=== PATIENT | female | born 1930 | race African-American/Black ===

== ENCOUNTER 2017-02-13 19:58 | Inpatient (IN) | payer MEDICARE, MEDICAID ==
[2017-02-13] MEDS ORDERED: Ondansetron HCl/PF 4 MG/2 ML Vial ONE (21:18)
[2017-02-13 21:32] LABS: #Lymphocytes 1.9 thou/uL (1.20-3.40); #Monocytes 0.9 thou/uL (0.11-0.59); #Neutrophils 6.8 thou/uL (1.40-6.50); %Basophils 0.4 % (0.0-1.0); %Eosinophils 0.5 % (0.0-10.0); %Lymphocytes 19.4 % (21.0-51.0); %Monocytes 9.6 % (0.0-10.0); Hematocrit 42.2 % (36.0-47.0); Mean Platelet Volume 8.4 fL (7.4-10.4); Red Blood Cell (RBC) Count 4.98 mill/uL (4.20-5.40); White Blood Cell (WBC) Count 9.7 thou/uL (4.8-10.8)
[2017-02-13 21:57] LABS: ALT (SGPT) 35 U/L (8-55); AST (SGOT) 30 U/L (5-34); Alkaline Phosphatase 90 U/L (40-150); Anion Gap 14 mmol/L (10-20); BUN (Urea Nitrogen) 21 mg/dL (9.8-20.1); Bilirubin, Total 0.3 mg/dL (0.2-1.2); CK (CPK) 25 U/L (29-168); Calc. Creatinine Clearance 0 mL/min (70-130); Calcium 9.9 mg/dL (7.8-10.44); Carbon Dioxide 22 mmol/L (23-31); Chloride 107 mmol/L (98-107); Estimated GFR-MDRD 66; Globulin 3.3 g/dL (2.4-3.5); Lipase 12 U/L (8-78); Protein, Total 6.9 g/dL (6.0-8.3)
[2017-02-13 22:09] LABS: Troponin I Less than 0.010 ng/mL (< 0.028)
--- NOTE | 2017-02-13 22:10 | RAD ---
RADIOGRAPH CHEST 1 VIEW: HISTORY: An 86-year-old female with hypertension. FINDINGS: The thoracic aorta is tortuous and ectatic. There is no evidence of air space density, pneumothorax , or pulmonary edema. The lateral costophrenic angles are sharp. There is no cardiomegaly. The me diastinum is widened, especially the upper mediastinum and especially on the right. There are no pr ior studies available for comparison. IMPRESSION: 1) No acute pulmonary findings. 2) Ectasia of thoracic aorta. 3) Widening of the upper mediastinum, nonspecific. jnr POS: [facility]
[2017-02-13 23:09] LABS: Lactic Acid - Sepsis 1.8 mmol/L (0.5-2.2)
[2017-02-13] MEDS ORDERED: Lorazepam 2 MG/ML VIAL ONE (23:30)
[2017-02-14 00:27] LABS: Bilirubin Negative (Negative); Blood, Urine Small (Negative); Glucose, Urine (Dipstick) Negative (Negative); Ketone, Urine Negative (Negative); Nitrite Negative (Negative); Protein, Urine (Dipstick) Trace mg/dL (Neg-Trace)
[2017-02-14 00:29] LABS: Bacteria/HPF 4+ HPF (None Seen)
[2017-02-14 00:44] LABS: Hyaline Casts/LPF NONE SEEN LPF (0-3 Hyaline); Renal Epithelial None Seen HPF (0-3); Transitional Epithelial NONE SEEN HPF (0-3); Yeast-All Forms None Seen HPF (None Seen)
[2017-02-14] MEDS ORDERED: cefTRIAXone\\ROCEPHIN 1 GM VIAL ONE (01:19)
[2017-02-14] MEDS ORDERED: Ondansetron ODT 4 MG TAB SL PRN (02:53)
[2017-02-14] MEDS ORDERED: Ondansetron HCl/PF 4 MG/2 ML Vial IVP PRN (02:53)
[2017-02-14] MEDS ORDERED: Lorazepam 2 MG/ML VIAL SLOW IVP PRN (02:54)
[2017-02-14] MEDS ORDERED: Sodium Chloride 0.45% 1,000 ML IV SCH ×2 (03:00→11:15)
[2017-02-14 03:23] VITALS: BMI 22.6
[2017-02-14] MEDS: Sodium Chloride 0.45% 1,000 ML IV SCH (12:57)
[2017-02-14] MEDS: cefTRIAXone\\ROCEPHIN 1 GM in Sodium Chloride 0.9% 100 ML IVPB SCH ×2 (12:58→23:25)
[2017-02-14] MEDS ORDERED: cefTRIAXone\\ROCEPHIN 1 GM in Sodium Chloride 0.9% 100 ML IVPB SCH (13:00)
--- NOTE | 2017-02-14 13:17 | CT ---
PRELIMINARY REPORT/[facility]/EMERGENCY AFTER HOURS PROCEDURE: EXAM: CT Abdomen and Pelvis Without Intravenous Contrast CLINICAL HISTORY: 86 years old, female; Pain; Abdominal pain; Generalized; Patient HX: Abd pain TECHNIQUE: Axial computed tomography images of the abdomen and pelvis without intravenous contrast. Coronal reformatted images were created and reviewed. COMPARISON: No relevant prior studies available. FINDINGS: Lower thorax: Mild posterior dependent atelectasis and/or scarring. Calcified granuloma within the p osterior right lower lobe. Calcified right hilar lymph nodes, compatible with prior granulomatous di sease. Atherosclerotic calcification of the visualized coronary arteries and distal thoracic aorta. ABDOMEN: Liver: Normal. Gallbladder and bile ducts: Cholelithiasis, without CT evidence of acute cholecystitis. Pancreas: Normal. Spleen: Normal. Adrenals: Normal. Kidneys and ureters: Normal. Stomach and bowel: Moderate amount of stool within the sigmoid colon and rectal vault, with multiple loops of non-pathologically dilated, gas and fluid-filled proximal colon and small bowel, likely co nstipation. Enteritis is possible. Mild wall thickening of the rectum, possibly edema secondary to f ecal impaction. Mild gas and fluid distention of the stomach. Appendix: No findings to suggest acute appendicitis. PELVIS: Bladder: Normal. Reproductive: Uterus is surgically absent. ABDOMEN and PELVIS: Intraperitoneal space: Normal. No free air. No significant fluid collection. Bones/joints: Multilevel thoracolumbar spine degenerative changes. Degenerative changes of the hips and sacroiliac joints. No acute fracture. No dislocation. Soft tissues: Normal. Vasculature: Multiple phleboliths within the pelvis. Lymph nodes: See above. IMPRESSION: 1. Moderate amount of stool within the sigmoid colon and rectal vault, with multiple loops of nonpat hologically dilated, gas and fluid-filled proximal colon and small bowel, likely constipation. Enter itis is possible. 2. Mild wall thickening of the rectum, possibly edema secondary to fecal impaction. 3. Incidental/non-acute findings are described above. Thank you for allowing us to participate in the care of your patient. Dictated and Authenticated by: Theodore England MD 02/14/2017 1:42 AM Central Time ([place] \T\ [place]) FINAL REPORT EMERGENCY AFTER HOURS CT ABDOMEN AND PELVIS WITHOUT CONTRAST: Date: 02/14/17 FINDINGS/IMPRESSION: I agree with the findings and impression given in the preliminary report per [facility] physician. There i s moderate stool retention in the colon without evidence of obstruction. There is a hyperdensity in the gallbladder. This could be artifactual or could represent a gallstone. POS: [facility]
[2017-02-14] MEDS: Artificial Tear Sol 15 ML BOT EA EYE SCH ×2 (15:49→21:01)
[2017-02-14] MEDS ORDERED: Fleet Enema 133 ML BOT FS SCH (18:45)
[2017-02-14] MEDS ORDERED: Magnesium Citrate 300 ML BOT PO SCH (18:45)
[2017-02-14] MEDS: risperiDONE 0.25 MG TAB PO SCH (19:11)
[2017-02-14] MEDS: levETIRAcetam 500 MG TAB PO SCH (19:12)
[2017-02-14] MEDS: Lorazepam 0.5 MG TAB PO SCH (19:12)
[2017-02-14] MEDS: Senokot S 8.6-50 MG TAB PO SCH (19:12)
[2017-02-14] MEDS: Mirtazapine 15 MG TAB PO SCH (19:12)
--- NOTE | 2017-02-15 06:19 | HP ---
DATE OF ADMISSION: 02/13/2017 CHIEF COMPLAINT: Altered mental status, high blood pressure, fever. HISTORY OF PRESENT ILLNESS: Ms. Rangel is an 86-year-old -[place]omin[place] female with past medical history of dementia, psychotic disorder, hypertension, anxiety disorder, who was noted to have fever for a couple of days. The patient has not been eating as well. The patient also is agitated. Her blood pressure was elevated[facility], so the patient was not her us ual self. She did not have any nausea, vomiting, or cough. No shortness of breath. She was sent t o the emergency room because of fever, elevated blood pressure, and change in mental status. In the ER, the patient was evaluated and found to have urinary tract infection with acute kidney injury. The patient received IV antibiotic, Rocephin, and IV fluids, also given Ativan because of her agitat ion. PAST MEDICAL HISTORY: 1. Dementia. 2. Seizure disorder. 3. Hypertension. 4. Hyperlipidemia. 5. Anxiety disorder. 6. Psychosis. 7. Major depression. 8. History of cerebrovascular accident. PAST SURGICAL HISTORY: Nothing significant. CURRENT MEDICATIONS: The patient is on aspirin 81 mg daily, calcium with vitamin D daily, Keppra 50 0 mg b.i.d., multivitamin daily, senna daily, Risperdal 0.5 b.i.d., Seroquel 100 mg 1-1/2 tablets at bedtime, Remeron 15 mg at bedtime, Ativan 0.5 b.i.d. ALLERGIES: No known drug allergies. FAMILY HISTORY: Nothing contributory. SOCIAL HISTORY: The patient lives in the [facility]. No history of smoking. No history of alcohol intake. REVIEW OF SYSTEMS: Unable to obtain because of mental status of the patient. PHYSICAL EXAMINATION: GENERAL: The patient is awake but not oriented. VITAL SIGNS: Temperature 99, pulse 103, respirations 20, blood pressure 150/90. HEENT: Head is normocephalic, atraumatic. Pupils equal and reactive to light. Nasopharynx is pale and dry. Hard and soft palate, no lesions. SKIN: Skin turgor decreased. NECK: Supple. No JVD. LUNGS: Breath sounds diminished bilaterally. Percussion dull bilaterally. No rales, no rhonchi. HEART: S1, S2 regular. ABDOMEN: Soft. No distention, no tenderness. Normal bowel sounds. RECTAL: Deferred. CENTRAL NERVOUS SYSTEM: Nonfocal. NEUROLOGIC: The patient is alert, awake, oriented x2. Motor system power 4/5 in all extremities. Deep tendon reflexes 2+ bilaterally. Plantars downgoing. Sensory intact. IMAGING: EKG shows sinus tachycardia with heart rate of 103, no acute ST-T wave changes seen. LABORATORY DATA: CBC shows WBC 9.7, hemoglobin 13, hematocrit 42, platelets 229. Metabolic panel s odium 139, potassium 4.4, chloride 107, CO2 of 22, urea nitrogen 21, creatinine 0.9, glucose 157. U rinalysis showed wbc's greater than 50, bacteria 4+. Chest x-ray shows no acute cardiopulmonary fin dings. CT of the brain revealed dilated loops secondary to constipation. ASSESSMENT: 1. Urinary tract infection. 2. Acute kidney injury. 3. Acute encephalopathy, metabolic. 4. Constipation, possible fecal impaction. 5. Dementia. 6. Hypertension. 7. Anxiety disorder. 8. History of cerebrovascular accident. PLAN: 1. Vital signs q. 4 hours. 2. Activity: As tolerated. 3. Allergies: NKDA. 4. IV fluids half normal at 70 mL per hour. 5. Rocephin 1 gram IV piggyback daily. 6. Continue [facility] medications. 7. Diet: Regular. 8. The patient is DNR. 9. We will give magnesium citrate and possible enema.
[2017-02-15 06:30] LABS: Anion Gap 9 mmol/L (10-20); BUN (Urea Nitrogen) 18 mg/dL (9.8-20.1); Calc. Creatinine Clearance 44 mL/min (70-130); Carbon Dioxide 25 mmol/L (23-31); Chloride 112 mmol/L (98-107); Estimated GFR-MDRD 74
[2017-02-15 06:40] LABS: #Eosinphils 0.2 thou/uL (0.0-0.7); #Lymphocytes 2.7 thou/uL (1.20-3.40); #Monocytes 0.6 thou/uL (0.11-0.59); #Neutrophils 1.9 thou/uL (1.40-6.50); %Basophils 0.8 % (0.0-1.0); %Eosinophils 3.6 % (0.0-10.0); %Lymphocytes 49.5 % (21.0-51.0); %Monocytes 11.3 % (0.0-10.0); Hematocrit 34.2 % (36.0-47.0); Mean Platelet Volume 8.5 fL (7.4-10.4); Red Blood Cell (RBC) Count 3.98 mill/uL (4.20-5.40); White Blood Cell (WBC) Count 5.4 thou/uL (4.8-10.8)
[2017-02-15] MEDS: risperiDONE 0.25 MG TAB PO SCH ×2 (08:15→21:07)
[2017-02-15] MEDS: Lorazepam 0.5 MG TAB PO SCH ×2 (08:15→21:07)
[2017-02-15] MEDS: levETIRAcetam 500 MG TAB PO SCH ×2 (08:15→21:06)
[2017-02-15] MEDS: Artificial Tear Sol 15 ML BOT EA EYE SCH ×3 (08:16→21:08)
[2017-02-15] MEDS: Sodium Chloride 0.45% 1,000 ML IV SCH (09:54)
[2017-02-15] MEDS: cefTRIAXone\\ROCEPHIN 1 GM in Sodium Chloride 0.9% 100 ML IVPB SCH (14:04)
[2017-02-15] MEDS: Senokot S 8.6-50 MG TAB PO SCH (21:06)
[2017-02-15] MEDS: Mirtazapine 15 MG TAB PO SCH (21:07)
[2017-02-16] MEDS: Sodium Chloride 0.45% 1,000 ML IV SCH ×2 (00:15→21:54)
[2017-02-16] MEDS: cefTRIAXone\\ROCEPHIN 1 GM in Sodium Chloride 0.9% 100 ML IVPB SCH ×2 (00:39→13:51)
[2017-02-16] MEDS: Lorazepam 0.5 MG TAB PO SCH ×2 (10:22→21:55)
[2017-02-16] MEDS: Artificial Tear Sol 15 ML BOT EA EYE SCH ×3 (10:22→21:54)
[2017-02-16] MEDS: risperiDONE 0.25 MG TAB PO SCH ×2 (10:22→21:54)
[2017-02-16] MEDS: levETIRAcetam 500 MG TAB PO SCH (10:22)
[2017-02-16] MEDS: levETIRAcetam 500 mg/5 ml Oral Solution PO SCH (21:54)
[2017-02-16] MEDS: Senokot S 8.6-50 MG TAB PO SCH (21:55)
[2017-02-16] MEDS: Mirtazapine 15 MG TAB PO SCH (21:55)
[2017-02-17] MEDS: cefTRIAXone\\ROCEPHIN 1 GM, Admixture Fee 1 EACH in Sodium Chloride 0.9% 100 ML IVPB SCH ×2 (01:45→13:51)
[2017-02-17 06:41] LABS: #Basophils 0.1 thou/uL (0.0-0.2); #Eosinphils 0.1 thou/uL (0.0-0.7); #Lymphocytes 1.9 thou/uL (1.20-3.40); #Monocytes 0.5 thou/uL (0.11-0.59); #Neutrophils 1.7 thou/uL (1.40-6.50); %Basophils 1.3 % (0.0-1.0); %Eosinophils 1.4 % (0.0-10.0); %Lymphocytes 45.4 % (21.0-51.0); %Monocytes 11.1 % (0.0-10.0); Hematocrit 33.2 % (36.0-47.0); Mean Platelet Volume 8.5 fL (7.4-10.4); Red Blood Cell (RBC) Count 3.94 mill/uL (4.20-5.40); White Blood Cell (WBC) Count 4.2 thou/uL (4.8-10.8)
[2017-02-17 07:04] LABS: Anion Gap 9 mmol/L (10-20); BUN (Urea Nitrogen) 15 mg/dL (9.8-20.1); Calc. Creatinine Clearance 44 mL/min (70-130); Calcium 8.7 mg/dL (7.8-10.44); Carbon Dioxide 25 mmol/L (23-31); Chloride 111 mmol/L (98-107); Estimated GFR-MDRD 75
[2017-02-17] MEDS: Lorazepam 0.5 MG TAB PO SCH ×2 (09:03→20:55)
[2017-02-17] MEDS: risperiDONE 0.25 MG TAB PO SCH ×2 (09:03→20:51)
[2017-02-17] MEDS: levETIRAcetam 500 mg/5 ml Oral Solution PO SCH ×2 (10:47→20:55)
[2017-02-17] MEDS: Artificial Tear Sol 15 ML BOT EA EYE SCH ×3 (11:24→20:49)
[2017-02-17] MEDS: Sodium Chloride 0.45% 1,000 ML IV SCH (18:39)
[2017-02-17] MEDS: Docusate 100 MG CAP PO SCH (20:50)
[2017-02-17] MEDS: Senokot S 8.6-50 MG TAB PO SCH (20:51)
[2017-02-17] MEDS: Mirtazapine 15 MG TAB PO SCH (20:51)
[2017-02-18] MEDS: cefTRIAXone\\ROCEPHIN 1 GM, Admixture Fee 1 EACH in Sodium Chloride 0.9% 100 ML IVPB SCH ×2 (00:13→13:44)
[2017-02-18] MEDS: levETIRAcetam 500 mg/5 ml Oral Solution PO SCH ×2 (09:31→21:12)
[2017-02-18] MEDS: risperiDONE 0.25 MG TAB PO SCH ×2 (09:31→21:11)
[2017-02-18] MEDS: Docusate 100 MG CAP PO SCH ×2 (09:31→21:11)
[2017-02-18] MEDS: Polyethylene Glycol 3350 17 GM Packet PO SCH (09:32)
[2017-02-18] MEDS: Artificial Tear Sol 15 ML BOT EA EYE SCH ×3 (09:32→21:11)
[2017-02-18] MEDS: Lorazepam 0.5 MG TAB PO SCH ×2 (09:33→21:12)
[2017-02-18] MEDS: Mirtazapine 15 MG TAB PO SCH (21:12)
[2017-02-18] MEDS: Senokot S 8.6-50 MG TAB PO SCH (21:15)
[2017-02-19] MEDS: cefTRIAXone\\ROCEPHIN 1 GM, Admixture Fee 1 EACH in Sodium Chloride 0.9% 100 ML IVPB SCH (00:49)
[2017-02-19 08:11] VITALS: BP 161/81; TEMP 97.5
[2017-02-19] MEDS: Lorazepam 0.5 MG TAB PO SCH (08:55)
[2017-02-19] MEDS: Artificial Tear Sol 15 ML BOT EA EYE SCH ×2 (08:55→09:00)
[2017-02-19] MEDS: risperiDONE 0.25 MG TAB PO SCH (08:55)
[2017-02-19] MEDS: Docusate 100 MG CAP PO SCH (08:56)
[2017-02-19] MEDS: Polyethylene Glycol 3350 17 GM Packet PO SCH (08:56)
[2017-02-19] MEDS: levETIRAcetam 500 mg/5 ml Oral Solution PO SCH (12:03)
--- NOTE | 2017-02-22 10:17 | DIS ---
DATE OF ADMISSION: 02/14/2017 DATE OF DISCHARGE: 02/19/2017 ADMITTING DIAGNOSES: 1. Urinary tract infection. 2. Acute kidney injury. 3. Acute encephalopathy, metabolic. 4. Constipation. 5. Dementia. 6. Hypertension. 7. Anxiety disorder. FINAL DIAGNOSES: 1. Urinary tract infection, no evidence of sepsis. 2. Acute kidney injury, improved. 3. Metabolic encephalopathy, improved. 4. Dementia. 5. Constipation, improved. 6. Hypertension. 7. Anxiety disorder. BRIEF SUMMARY OF HOSPITAL COURSE: Ms. Rangel is an 86-year-old -[place] female admitted bec ause of change in mental status. Patient was found to have a urinary tract infection and acute kidn ey injury. The patient was started on IV fluids and antibiotics. Her BUN was 21, came down to 15, and urine culture showed beta hemolytic streptococcus. The patient was treated with Rocephin initia lly. Her constipation resolved with laxatives. The patient tolerating diet very well. Her mental status also improved. In view of improvement, the patient was discharged. PHYSICAL EXAMINATION: GENERAL: At the time of discharge, she was stable. VITAL SIGNS: Stable. LUNGS: Clear. CARDIOVASCULAR: Heart sounds regular. ABDOMEN: Soft, nontender. Bowel sounds present. DISCHARGE MEDICATIONS: Include, Remeron 15 mg at bedtime, Risperdal 0.5 b.i.d., Seroquel 150 mg at bedtime, Ativan b.i.d. 0.5, benztropine 0.5 at bedtime, amlodipine 10 mg daily, Senokot 2 tablets at bedtime, vitamin C daily, Keppra 500 b.i.d., aspirin 81 mg daily, levofloxacin 500 daily for 5 days , and MiraLax daily. FOLLOWUP: The patient will be followed up at [facility].
== END 2017-02-19 12:05 | DRG 689 ==
LOC: ERS 19:58 → 2NO 02-14 01:05 → T4-B 02-17 08:31
PROVIDERS: ADMIT Internal Medicine; ATTEND Internal Medicine
DX: N39.0 Urinary tract infection, site not specified (principal); G93.41 Metabolic encephalopathy; N17.9 Acute kidney failure, unspecified; K56.41 Fecal impaction; F03.90 Unspecified dementia, unspecified severity, without behavioral disturbance, psychotic disturbance, mood disturbance, and anxiety; I10 Essential (primary) hypertension; F41.9 Anxiety disorder, unspecified; Z86.73 Personal history of transient ischemic attack (TIA), and cerebral infarction without residual deficits; Z79.82 Long term (current) use of aspirin; Z66 Do not resuscitate; G40.909 Epilepsy, unspecified, not intractable, without status epilepticus
CPT/HCPCS: 36415; 51701; 71010; 74176; 80048; 80053; 81003; 81015; 82550; 82553; 83605; 83690; 84484; 85025; 87040; 87086; 93005; 96361; 96365; 96374; 96375; A4216; A4353; G8996-GN-CL; G8997-GN-CK; J0696; J2060; J2270; J2405; J7050

== ENCOUNTER 2017-06-06 09:53 | Inpatient (IN) | payer MEDICARE, MEDICAID ==
[2017-06-06 11:11] LABS: #Lymphocytes 2.5 thou/uL (1.20-3.40); #Monocytes 0.9 thou/uL (0.11-0.59); #Neutrophils 8.5 thou/uL (1.40-6.50); %Basophils 0.4 % (0.0-1.0); %Eosinophils 0.1 % (0.0-10.0); %Lymphocytes 20.9 % (21.0-51.0); %Monocytes 7.3 % (0.0-10.0); %Neutrophils 71.3 % (42.0-75.0); Hypochromia SLIGHT = 6-15 cells (100X) (0-5/hpf); MDiff Complete? YES; Mean Corpuscular HGB CONC 29.8 g/dL (32.0-36.0); Mean Corpuscular Hemoglobin 23.2 pg (27.0-31.0); Mean Corpuscular Volume 77.9 fl (81.0-99.0); Mean Platelet Volume 6.8 fL (7.4-10.4); Platelet Count 223 thou/uL (130-400); RBC Distribution Width 18.5 % (11.5-14.5); Red Blood Cell (RBC) Count 5.17 mill/uL (4.20-5.40); Target Cells SLIGHT = 2-5 cells (100X) (0-1/hpf); White Blood Cell (WBC) Count 11.9 thou/uL (4.8-10.8)
[2017-06-06 11:17] LABS: ALT (SGPT) 11 U/L (8-55); AST (SGOT) 18 U/L (5-34); Albumin 3.8 g/dL (3.4-4.8); Alkaline Phosphatase 85 U/L (40-150); Anion Gap 14 mmol/L (10-20); BUN (Urea Nitrogen) 32 mg/dL (9.8-20.1); Bilirubin, Total 0.6 mg/dL (0.2-1.2); CK (CPK) 129 U/L (29-168); Calc. Creatinine Clearance 0 mL/min (70-130); Calcium 10.6 mg/dL (7.8-10.44); Carbon Dioxide 22 mmol/L (23-31); Chloride 109 mmol/L (98-107); Estimated GFR-MDRD 57; Globulin 3.1 g/dL (2.4-3.5); Glucose 106 mg/dL (83-110); Potassium 4.8 mmol/L (3.5-5.1); Protein, Total 6.9 g/dL (6.0-8.3); Sodium 140 mmol/L (136-145)
[2017-06-06 11:19] LABS: CKMB 1.3 ng/mL (0-6.6); Troponin I 0.018 ng/mL (< 0.028)
--- NOTE | 2017-06-06 12:20 | CT ---
CT HEAD NONCONTRAST: HISTORY: Altered mental status. COMPARISON: 01/01/17. FINDINGS: There is no evidence of acute intracranial hemorrhage or infarct. Old left occipital infarct is stab le. Chronic ischemic small-vessel disease is apparent within the periventricular white matter of eac h cerebral hemisphere. Old right frontal calvarial craniotomy defect is again demonstrated. Exostos is projecting anteriorly from the right frontal calvarium is stable. IMPRESSION: No acute intracranial abnormalities are demonstrated on noncontrast CT head. POS: [facility]
[2017-06-06 12:26] LABS: Bilirubin Negative (Negative); Blood, Urine Negative (Negative); Clarity TURBID (Clear); Glucose, Urine (Dipstick) Negative (Negative); Leukocyte Moderate (Negative); Nitrite Negative (Negative); Protein, Urine (Dipstick) Negative (Neg-Trace); Specific Gravity, Urine 1.028 (1.002-1.036); Urobilinogen 0.2 mg/dL (0.2-1.0); pH, Urine 5.5 (5.0-9.0)
--- NOTE | 2017-06-06 12:27 | RAD ---
CHEST 1 VIEW: HISTORY: A 47-year-old female with a history of fever and altered mental status. COMPARISON: 02/13/17. FINDINGS: Atherosclerotic ectatic changes of the aorta. There is some fullness in the superior mediastinum reg ion which may well be prominent vascular structures. It would be difficult to totally exclude the po ssibility of an anterior superior mediastinal mass. Appearance is, however, stable when compared to prior exam dating back to 02/13/17. No confluent pneumonia, overt edema, or pleural effusion. Bilateral shoulder joint arthrosis. IMPRESSION: No acute intrathoracic disease. Atherosclerosis of the aorta with ectasia. POS: [facility]
[2017-06-06 12:30] LABS: Bacteria/HPF 4+ HPF (None Seen); RBC/HPF 0-3 HPF (0-3); Squamous Epithelial 21-50 HPF (0-3)
[2017-06-06 12:33] LABS: Yeast-AUWi Flag 39.3 (0-25.0)
[2017-06-06 12:43] LABS: Hyaline Casts/LPF NONE SEEN LPF (0-3 Hyaline); Manual Microscopic Reviewed? No Path Casts Seen; Yeast-All Forms None Seen HPF (None Seen)
[2017-06-06] MEDS: Sodium Chloride 0.45% 1,000 ML IV SCH (15:52)
[2017-06-06 16:29] LABS: Lactic Acid 1.5 mmol/L (0.5-2.2)
[2017-06-06 20:49] LABS: Bilirubin Negative (Negative); Blood, Urine Negative (Negative); Clarity CLOUDY (Clear); Glucose, Urine (Dipstick) Negative (Negative); Leukocyte Small (Negative); Nitrite Negative (Negative); Protein, Urine (Dipstick) Negative (Neg-Trace); Specific Gravity, Urine 1.027 (1.002-1.036); Urobilinogen 0.2 mg/dL (0.2-1.0)
[2017-06-06 20:51] LABS: Bacteria/HPF 3+ HPF (None Seen); Hyaline Casts/LPF 4-6 HYALINE CAST LPF (0-3 Hyaline); Pathc Cast-AUWi Flag 1.35 (0-2.49); WBC/HPF 0-3 HPF (0-3)
[2017-06-06 21:02] LABS: RBC/HPF 0-3 HPF (0-3)
[2017-06-06] MEDS: Mirtazapine 15 MG TAB PO SCH (22:46)
[2017-06-06] MEDS: risperiDONE 0.25 MG TAB PO SCH (22:46)
[2017-06-06] MEDS: Lorazepam 1 MG TAB PO SCH (22:46)
[2017-06-06] MEDS: Calcium Carbonate + Vit D 1 TAB PO SCH (22:56)
[2017-06-06] MEDS: levETIRAcetam 500 MG TAB PO SCH (22:56)
[2017-06-06] MEDS: Senokot S 8.6-50 MG TAB PO SCH (23:04)
[2017-06-06] MEDS: Docusate 100 MG CAP PO SCH (23:04)
[2017-06-06] MEDS: Benztropine 1 MG TAB PO SCH (23:15)
[2017-06-06] MEDS: Artificial Tear Sol 15 ML BOT EA EYE SCH (23:16)
--- NOTE | 2017-06-07 00:16 | HP ---
DATE OF ADMISSION: CHIEF COMPLAINT: Fever, change in mental status. HISTORY OF PRESENT ILLNESS: Ms. Rangel is an 87-year-old -[place] female with past medical history of dementia, anxiety disorder, who was found to have temperature of 101 at the care home. The patient was also found to be very lethargic as per the care home staff and she was tachycardic. The patient was very calm, not responding. Usually, she is combative to the care The patient was not usual herself. She did not have any cough or nausea or vomiting. In view of this high fever and change in mental status, the patient was sent to the emergency room. In the ER, the patient was evaluated and found to have temperature of 101.6 and evidence of urinary tract infection and dehydration. The patient was given IV fluids, ceftriaxone, and vancomycin and admitted for further evaluation and management. PAST MEDICAL HISTORY: 1. Dementia. 2. Anxiety disorder. 3. Depression. 4. Psychosis. 5. History of CVA. 6. Hypertension. 7. Seizure disorder. PAST SURGICAL HISTORY: Nothing significant. CURRENT MEDICATIONS: The patient is on 81 mg aspirin daily, calcium with vitamin D daily, Keppra 500 b.i.d., multivitamin daily, senna daily, Risperdal 0.5 b.i.d., amlodipine 10 mg daily, vitamin C daily, MiraLax daily, Remeron 15 mg at bedtime, Seroquel 150 at bedtime, Ativan 0.5 mg b.i.d., and benztropine 0.5 at bedtime. ALLERGIES: NKDA. FAMILY HISTORY: Nothing contributory. SOCIAL HISTORY: The patient lives in the care home. REVIEW OF SYSTEMS: CARDIOVASCULAR: No chest pain. No shortness of breath. RESPIRATORY: She has fever, no cough. GASTROINTESTINAL: No nausea or vomiting. No abdominal pain. GENITOURINARY: No dysuria or hematuria. EVENT STAFF: No headache, no dizziness. PHYSICAL EXAMINATION: GENERAL: The patient is alert, awake, not well oriented. VITAL SIGNS: Temperature 101.1, pulse 96, respirations 20, and blood pressure 130/60. HEENT: Head is normocephalic, atraumatic. Pupils equal and reactive to light. Nasopharynx is pale and dry. Skin turgor decreased. NECK: Supple. No JVD. LUNGS: Bilateral air entry present, no rales, no rhonchi. CARDIAC: S1 and S2, regular. ABDOMEN: Soft, no distention, no tenderness. Normal bowel sounds. NEUROLOGIC: No focal deficit. SKIN: There is stage II sacral decubitus. LABORATORY AND X-RAY FINDINGS: CBC shows WBC 11.9, hemoglobin 12, hematocrit 40 , platelets 223. Metabolic panel: Sodium 140, potassium 4.8, chloride 109, CO2 20, creatinine 1.1, glucose 106. BNP 103. Urinalysis revealed wbc 2150, bacteria 4+, leukocyte esterase moderate. Chest x-ray, no acute intrathoracic disease. EKG shows normal sinus rhythm, no acute ST-T wave changes seen. ASSESSMENT: 1. Fever with leukocytosis, rule out sepsis. 2. Urinary tract infection, rule out sepsis. 3. Rule out influenza. 4. acute metabolic encephalopathy. 5. Acute kidney injury. 6. Dementia. 7. Psychosis. 8. Anxiety disorder. 9. Seizure disorder. PLAN: 1. Vital signs q.4 hours. 2. Activity as tolerated. 3. Allergies: NKDA. 4. IV fluids 1/2 normal at 70 mL per hour. 5. Rocephen 2 g IV piggyback daily. 6. Intake and output. 7. Continue care home medications. 8. urine cultures. 9. Wound care team consult. 10. Blood cultures. MTDD
[2017-06-07] MEDS: Lorazepam 1 MG TAB PO SCH ×2 (09:26→21:01)
[2017-06-07] MEDS: Ascorbic Acid 500 mg Chewable Tablet PO SCH (09:26)
[2017-06-07] MEDS: Amlodipine 10 MG TAB PO SCH (09:26)
[2017-06-07] MEDS: risperiDONE 0.25 MG TAB PO SCH ×2 (09:26→21:03)
[2017-06-07] MEDS: Calcium Carbonate + Vit D 1 TAB PO SCH ×2 (09:26→21:03)
[2017-06-07] MEDS: Aspirin 81 mg Enteric Coated Tablet PO SCH (09:26)
[2017-06-07] MEDS: Docusate 100 MG CAP PO SCH ×2 (09:26→21:03)
[2017-06-07] MEDS: levETIRAcetam 500 MG TAB PO SCH ×2 (09:26→21:03)
[2017-06-07] MEDS: Polyethylene Glycol 3350 17 GM Packet PO SCH (09:33)
[2017-06-07] MEDS: cefTRIAXone\\ROCEPHIN 2 GM in Sodium Chloride 0.9% 100 ML IVPB SCH (09:38)
[2017-06-07] MEDS: Artificial Tear Sol 15 ML BOT EA EYE SCH ×3 (09:38→21:03)
[2017-06-07] MEDS: Sodium Chloride 0.45% 1,000 ML IV SCH ×2 (09:47→21:16)
[2017-06-07] MEDS: Senokot S 8.6-50 MG TAB PO SCH (21:02)
[2017-06-07] MEDS: Mirtazapine 15 MG TAB PO SCH (21:04)
[2017-06-07] MEDS: Benztropine 1 MG TAB PO SCH (21:04)
[2017-06-08] MEDS: Sodium Chloride 0.45% 1,000 ML IV SCH ×2 (00:13→08:35)
[2017-06-08 06:24] LABS: Anion Gap 8 mmol/L (10-20); BUN (Urea Nitrogen) 13 mg/dL (9.8-20.1); Calc. Creatinine Clearance 56 mL/min (70-130); Calcium 8.8 mg/dL (7.8-10.44); Carbon Dioxide 24 mmol/L (23-31); Chloride 112 mmol/L (98-107); Estimated GFR-MDRD 89; Glucose 104 mg/dL (83-110); Potassium 3.5 mmol/L (3.5-5.1); Sodium 140 mmol/L (136-145)
[2017-06-08 06:39] LABS: Band 2 % (5-11); Eosinophils 1 % (0-10); Hemoglobin 7.9 g/dL (12.0-16.0); Hypochromia SLIGHT = 6-15 cells (100X) (0-5/hpf); Lymphocytes 37 % (21-51); MDiff Complete? YES; Mean Corpuscular HGB CONC 30.7 g/dL (32.0-36.0); Mean Corpuscular Hemoglobin 23.8 pg (27.0-31.0); Mean Corpuscular Volume 77.5 fl (81.0-99.0); Mean Platelet Volume 11.3 fL (7.4-10.4); Monocytes 8 % (0-10); Neutrophil 52 % (42-75); PLT Morphology Comment Appears Adequate; Platelet Count 178 thou/uL (130-400); RBC Distribution Width 18.3 % (11.5-14.5); Schistocytes SLIGHT = 2-5 cells (100X) (0-1/hpf); White Blood Cell (WBC) Count 4.1 thou/uL (4.8-10.8)
[2017-06-08] MEDS: Polyethylene Glycol 3350 17 GM Packet PO SCH (08:31)
[2017-06-08] MEDS: Docusate 100 MG CAP PO SCH ×2 (08:31→21:54)
[2017-06-08] MEDS: Calcium Carbonate + Vit D 1 TAB PO SCH ×2 (08:32→21:54)
[2017-06-08] MEDS: levETIRAcetam 500 MG TAB PO SCH ×2 (08:32→21:54)
[2017-06-08] MEDS: risperiDONE 0.25 MG TAB PO SCH ×2 (08:32→21:57)
[2017-06-08] MEDS: Aspirin 81 mg Enteric Coated Tablet PO SCH (08:33)
[2017-06-08] MEDS: Amlodipine 10 MG TAB PO SCH (08:33)
[2017-06-08] MEDS: cefTRIAXone\\ROCEPHIN 2 GM in Sodium Chloride 0.9% 100 ML IVPB SCH (08:34)
[2017-06-08] MEDS: Ascorbic Acid 500 mg Chewable Tablet PO SCH (08:34)
[2017-06-08] MEDS: Lorazepam 1 MG TAB PO SCH ×2 (08:34→21:55)
[2017-06-08] MEDS: Artificial Tear Sol 15 ML BOT EA EYE SCH ×3 (08:44→22:17)
[2017-06-08 09:15] LABS: #Eosinphils 0.1 thou/uL (0.0-0.7); #Lymphocytes 2.3 thou/uL (1.20-3.40); #Monocytes 0.6 thou/uL (0.11-0.59); #Neutrophils 2.4 thou/uL (1.40-6.50); %Basophils 0.7 % (0.0-1.0); %Eosinophils 2.5 % (0.0-10.0); %Lymphocytes 42.8 % (21.0-51.0); %Monocytes 10.6 % (0.0-10.0); %Neutrophils 43.3 % (42.0-75.0); Hypochromia SLIGHT = 6-15 cells (100X) (0-5/hpf); MDiff Complete? YES; Mean Corpuscular HGB CONC 29.9 g/dL (32.0-36.0); Mean Corpuscular Hemoglobin 23.2 pg (27.0-31.0); Mean Corpuscular Volume 77.5 fl (81.0-99.0); Mean Platelet Volume 11.6 fL (7.4-10.4); Microcytosis SLIGHT = 6-15 cells (100X) (0-5/hpf); Platelet Count 207 thou/uL (130-400); RBC Distribution Width 18.4 % (11.5-14.5); White Blood Cell (WBC) Count 5.5 thou/uL (4.8-10.8)
[2017-06-08] MEDS: Potassium Chloride 20 MEQ TAB PO SCH ×2 (18:35→21:58)
[2017-06-08] MEDS: Benztropine 1 MG TAB PO SCH (21:53)
[2017-06-08] MEDS: Mirtazapine 15 MG TAB PO SCH (21:56)
[2017-06-08] MEDS: Senokot S 8.6-50 MG TAB PO SCH (21:58)
[2017-06-09] MEDS: Sodium Chloride 0.45% 1,000 ML IV SCH ×2 (02:36→11:11)
[2017-06-09 05:39] LABS: Anion Gap 9 mmol/L (10-20); BUN (Urea Nitrogen) 12 mg/dL (9.8-20.1); Calc. Creatinine Clearance 52 mL/min (70-130); Calcium 9.6 mg/dL (7.8-10.44); Carbon Dioxide 24 mmol/L (23-31); Chloride 112 mmol/L (98-107); Estimated GFR-MDRD 81; Glucose 81 mg/dL (83-110); Iron 29 ug/dL (50-170); Iron Binding Capacity, Total 213 mcg/dL (265-497); Potassium 4.3 mmol/L (3.5-5.1); Sodium 141 mmol/L (136-145)
[2017-06-09 05:49] LABS: Band 1 % (5-11); Eosinophils 2 % (0-10); Hemoglobin 8.1 g/dL (12.0-16.0); Hypochromia SLIGHT = 6-15 cells (100X) (0-5/hpf); Lymphocytes 54 % (21-51); MDiff Complete? YES; Mean Corpuscular HGB CONC 30.4 g/dL (32.0-36.0); Mean Corpuscular Hemoglobin 23.6 pg (27.0-31.0); Mean Corpuscular Volume 77.6 fl (81.0-99.0); Mean Platelet Volume 10.8 fL (7.4-10.4); Monocytes 11 % (0-10); Neutrophil 32 % (42-75); Platelet Count 207 thou/uL (130-400); RBC Distribution Width 18.2 % (11.5-14.5); Red Blood Cell (RBC) Count 3.42 mill/uL (4.20-5.40); White Blood Cell (WBC) Count 4.1 thou/uL (4.8-10.8)
[2017-06-09] MEDS: Polyethylene Glycol 3350 17 GM Packet PO SCH (10:47)
[2017-06-09] MEDS: risperiDONE 0.25 MG TAB PO SCH ×2 (10:48→20:28)
[2017-06-09] MEDS: Amlodipine 10 MG TAB PO SCH (10:48)
[2017-06-09] MEDS: Ascorbic Acid 500 mg Chewable Tablet PO SCH (10:48)
[2017-06-09] MEDS: Lorazepam 1 MG TAB PO SCH ×2 (10:48→20:25)
[2017-06-09] MEDS: levETIRAcetam 500 MG TAB PO SCH ×2 (10:48→20:25)
[2017-06-09] MEDS: Docusate 100 MG CAP PO SCH ×2 (10:48→20:24)
[2017-06-09] MEDS: Aspirin 81 mg Enteric Coated Tablet PO SCH (10:48)
[2017-06-09] MEDS: Artificial Tear Sol 15 ML BOT EA EYE SCH ×3 (10:49→20:42)
[2017-06-09] MEDS: Calcium Carbonate + Vit D 1 TAB PO SCH ×2 (10:49→20:23)
[2017-06-09] MEDS: cefTRIAXone\\ROCEPHIN 2 GM in Sodium Chloride 0.9% 100 ML IVPB SCH (10:51)
[2017-06-09 12:34] VITALS: BMI 24.2
[2017-06-09] MEDS: Benztropine 1 MG TAB PO SCH (20:20)
[2017-06-09] MEDS: Mirtazapine 15 MG TAB PO SCH (20:26)
[2017-06-09] MEDS: Senokot S 8.6-50 MG TAB PO SCH (20:28)
[2017-06-10] MEDS: cefTRIAXone\\ROCEPHIN 2 GM in Sodium Chloride 0.9% 100 ML IVPB SCH (09:18)
[2017-06-10] MEDS: levETIRAcetam 500 MG TAB PO SCH ×2 (09:18→22:02)
[2017-06-10] MEDS: Ascorbic Acid 500 mg Chewable Tablet PO SCH (09:18)
[2017-06-10] MEDS: Calcium Carbonate + Vit D 1 TAB PO SCH ×2 (09:19→22:01)
[2017-06-10] MEDS: risperiDONE 0.25 MG TAB PO SCH ×2 (09:19→22:02)
[2017-06-10] MEDS: Lorazepam 1 MG TAB PO SCH ×2 (09:19→22:02)
[2017-06-10] MEDS: Artificial Tear Sol 15 ML BOT EA EYE SCH ×3 (09:19→22:05)
[2017-06-10] MEDS: Docusate 100 MG CAP PO SCH ×2 (09:19→22:05)
[2017-06-10] MEDS: Amlodipine 10 MG TAB PO SCH (09:19)
[2017-06-10] MEDS: Aspirin 81 mg Enteric Coated Tablet PO SCH (09:19)
[2017-06-10] MEDS: Polyethylene Glycol 3350 17 GM Packet PO SCH (09:20)
[2017-06-10] MEDS: Senokot S 8.6-50 MG TAB PO SCH (22:01)
[2017-06-10] MEDS: Mirtazapine 15 MG TAB PO SCH (22:02)
[2017-06-10] MEDS: Benztropine 1 MG TAB PO SCH (22:04)
[2017-06-11 05:01] LABS: #Eosinphils 0.2 thou/uL (0.0-0.7); #Monocytes 0.5 thou/uL (0.11-0.59); #Neutrophils 1.6 thou/uL (1.40-6.50); %Eosinophils 3.7 % (0.0-10.0); %Monocytes 10.6 % (0.0-10.0); %Neutrophils 37.7 % (42.0-75.0); Hemoglobin 8.2 g/dL (12.0-16.0); Mean Corpuscular HGB CONC 30.9 g/dL (32.0-36.0); Mean Corpuscular Volume 77.6 fl (81.0-99.0); Mean Platelet Volume 10.3 fL (7.4-10.4); Platelet Count 228 thou/uL (130-400); RBC Distribution Width 18.5 % (11.5-14.5); White Blood Cell (WBC) Count 4.2 thou/uL (4.8-10.8)
[2017-06-11 05:12] LABS: Anion Gap 9 mmol/L (10-20); BUN (Urea Nitrogen) 11 mg/dL (9.8-20.1); Calc. Creatinine Clearance 45 mL/min (70-130); Calcium 9.5 mg/dL (7.8-10.44); Carbon Dioxide 27 mmol/L (23-31); Chloride 110 mmol/L (98-107); Estimated GFR-MDRD 71; Glucose 100 mg/dL (83-110); Potassium 3.7 mmol/L (3.5-5.1); Sodium 142 mmol/L (136-145)
[2017-06-11] MEDS: Amlodipine 10 MG TAB PO SCH (09:45)
[2017-06-11] MEDS: Ascorbic Acid 500 mg Chewable Tablet PO SCH (09:46)
[2017-06-11] MEDS: Aspirin 81 mg Enteric Coated Tablet PO SCH (09:46)
[2017-06-11] MEDS: Calcium Carbonate + Vit D 1 TAB PO SCH ×2 (09:46→20:20)
[2017-06-11] MEDS: risperiDONE 0.25 MG TAB PO SCH ×2 (09:46→20:20)
[2017-06-11] MEDS: levETIRAcetam 500 MG TAB PO SCH ×2 (09:46→20:20)
[2017-06-11] MEDS: Docusate 100 MG CAP PO SCH ×2 (09:46→20:20)
[2017-06-11] MEDS: Lorazepam 1 MG TAB PO SCH ×2 (09:47→20:20)
[2017-06-11] MEDS: cefTRIAXone\\ROCEPHIN 2 GM in Sodium Chloride 0.9% 100 ML IVPB SCH (09:48)
[2017-06-11] MEDS: Polyethylene Glycol 3350 17 GM Packet PO SCH (09:48)
[2017-06-11] MEDS: Artificial Tear Sol 15 ML BOT EA EYE SCH ×3 (09:48→20:21)
[2017-06-11] MEDS: Benztropine 1 MG TAB PO SCH (20:19)
[2017-06-11] MEDS: Mirtazapine 15 MG TAB PO SCH (20:20)
[2017-06-11] MEDS: Senokot S 8.6-50 MG TAB PO SCH (20:20)
[2017-06-12] MEDS: risperiDONE 0.25 MG TAB PO SCH ×2 (08:18→20:23)
[2017-06-12] MEDS: levETIRAcetam 500 MG TAB PO SCH ×2 (08:18→20:23)
[2017-06-12] MEDS: Calcium Carbonate + Vit D 1 TAB PO SCH ×2 (08:19→20:24)
[2017-06-12] MEDS: Lorazepam 1 MG TAB PO SCH ×2 (08:19→20:24)
[2017-06-12] MEDS: Polyethylene Glycol 3350 17 GM Packet PO SCH (08:19)
[2017-06-12] MEDS: Docusate 100 MG CAP PO SCH ×2 (08:19→20:24)
[2017-06-12] MEDS: Amlodipine 10 MG TAB PO SCH (08:19)
[2017-06-12] MEDS: Ascorbic Acid 500 mg Chewable Tablet PO SCH (08:19)
[2017-06-12] MEDS: Aspirin 81 mg Enteric Coated Tablet PO SCH (08:19)
[2017-06-12] MEDS: cefTRIAXone\\ROCEPHIN 2 GM in Sodium Chloride 0.9% 100 ML IVPB SCH (08:20)
[2017-06-12] MEDS: Artificial Tear Sol 15 ML BOT EA EYE SCH ×3 (08:20→20:24)
[2017-06-12] MEDS: Benztropine 1 MG TAB PO SCH (20:22)
[2017-06-12] MEDS: Senokot S 8.6-50 MG TAB PO SCH (20:23)
[2017-06-12] MEDS: Mirtazapine 15 MG TAB PO SCH (20:23)
[2017-06-13 04:50] LABS: #Eosinphils 0.1 thou/uL (0.0-0.7); #Lymphocytes 1.8 thou/uL (1.20-3.40); #Monocytes 0.6 thou/uL (0.11-0.59); #Neutrophils 3.2 thou/uL (1.40-6.50); %Basophils 0.7 % (0.0-1.0); %Eosinophils 1.2 % (0.0-10.0); %Lymphocytes 31.2 % (21.0-51.0); %Monocytes 10.1 % (0.0-10.0); %Neutrophils 56.8 % (42.0-75.0); Hemoglobin 9.3 g/dL (12.0-16.0); Mean Corpuscular HGB CONC 31.5 g/dL (32.0-36.0); Mean Corpuscular Hemoglobin 24.8 pg (27.0-31.0); Mean Corpuscular Volume 78.7 fl (81.0-99.0); Mean Platelet Volume 9.8 fL (7.4-10.4); Platelet Count 270 thou/uL (130-400); RBC Distribution Width 18.5 % (11.5-14.5); Red Blood Cell (RBC) Count 3.77 mill/uL (4.20-5.40); White Blood Cell (WBC) Count 5.7 thou/uL (4.8-10.8)
[2017-06-13 05:08] LABS: Anion Gap 12 mmol/L (10-20); BUN (Urea Nitrogen) 11 mg/dL (9.8-20.1); Calc. Creatinine Clearance 49 mL/min (70-130); Calcium 9.7 mg/dL (7.8-10.44); Carbon Dioxide 24 mmol/L (23-31); Chloride 111 mmol/L (98-107); Estimated GFR-MDRD 80; Glucose 84 mg/dL (83-110); Potassium 3.8 mmol/L (3.5-5.1); Sodium 143 mmol/L (136-145)
[2017-06-13] MEDS: Artificial Tear Sol 15 ML BOT EA EYE SCH ×3 (08:36→20:04)
[2017-06-13] MEDS: cefTRIAXone\\ROCEPHIN 2 GM in Sodium Chloride 0.9% 100 ML IVPB SCH (08:36)
[2017-06-13] MEDS: risperiDONE 0.25 MG TAB PO SCH ×2 (08:37→20:06)
[2017-06-13] MEDS: levETIRAcetam 500 MG TAB PO SCH ×2 (08:37→20:06)
[2017-06-13] MEDS: Lorazepam 1 MG TAB PO SCH ×2 (08:37→20:05)
[2017-06-13] MEDS: Polyethylene Glycol 3350 17 GM Packet PO SCH (08:38)
[2017-06-13] MEDS: Ascorbic Acid 500 mg Chewable Tablet PO SCH (08:38)
[2017-06-13] MEDS: Aspirin 81 mg Enteric Coated Tablet PO SCH (08:38)
[2017-06-13] MEDS: Amlodipine 10 MG TAB PO SCH (08:38)
[2017-06-13] MEDS: Calcium Carbonate + Vit D 1 TAB PO SCH ×2 (08:38→20:06)
[2017-06-13] MEDS: Docusate 100 MG CAP PO SCH ×2 (08:38→20:06)
[2017-06-13] MEDS: Senokot S 8.6-50 MG TAB PO SCH (20:06)
[2017-06-13] MEDS: Mirtazapine 15 MG TAB PO SCH (20:06)
[2017-06-13] MEDS: Benztropine 1 MG TAB PO SCH (21:22)
[2017-06-14 08:55] VITALS: BP 144/76; TEMP 97.9
[2017-06-14] MEDS: Ascorbic Acid 500 mg Chewable Tablet PO SCH (09:37)
[2017-06-14] MEDS: risperiDONE 0.25 MG TAB PO SCH (09:37)
[2017-06-14] MEDS: Lorazepam 1 MG TAB PO SCH (09:37)
[2017-06-14] MEDS: Amlodipine 10 MG TAB PO SCH (09:38)
[2017-06-14] MEDS: Aspirin 81 mg Enteric Coated Tablet PO SCH (09:38)
[2017-06-14] MEDS: Polyethylene Glycol 3350 17 GM Packet PO SCH (09:38)
[2017-06-14] MEDS: Artificial Tear Sol 15 ML BOT EA EYE SCH (09:38)
[2017-06-14] MEDS: Calcium Carbonate + Vit D 1 TAB PO SCH (09:38)
[2017-06-14] MEDS: levETIRAcetam 500 MG TAB PO SCH (09:38)
[2017-06-14] MEDS: Docusate 100 MG CAP PO SCH (09:38)
--- NOTE | 2017-06-15 14:26 | DIS ---
DATE OF ADMISSION: 06/06/2017 DATE OF DISCHARGE: 06/14/2017 ADMITTING DIAGNOSES: 1. Fever with leukocytosis, rule out sepsis. 2. Urinary tract infection, rule out sepsis. 3. Rule out influenza infection. 4. Acute metabolic encephalopathy. 5. Acute kidney injury, improved. 6. Dementia. 7. Psychosis. 8. Anxiety disorder. 9. Seizure disorder. FINAL DIAGNOSES: 1. Urinary tract infection, no evidence of sepsis. 2. Fever and leukocytosis, resolved. No evidence of influenza infection. 3. Acute metabolic encephalopathy, improved. 4. Acute kidney injury, improved. 5. Dementia. 6. Psychosis. 7. Anxiety disorder. 8. Seizure disorder. BRIEF SUMMARY OF HOSPITAL COURSE: Ms. Rangel was found to have urinary tract infection as well as de hydration, fever, and leukocytosis. She was very [facility]argic and tachycardic at the [facility] and t hat is why she was sent to the hospital. She was found to have a UTI. She was started on IV antibio tics and IV fluids. The patient had leukocytosis with a WBC of 12,000, but it came down to 5000. He r BUN was 32, came down to 11 with fluid therapy. Her urine culture and blood culture revealed no gr owth. Influenza screen was negative. The patient became more alert, awake, and was able to eat norm ally. In view of improvement, the patient was discharged. At the time of discharge, she was stable. Her vital signs were stable. Lungs clear. Heart sounds regular. Abdomen was soft. DISCHARGE MEDICATIONS: Include, 1. Remeron 15 mg at bedtime. 2. Risperdal 0.5 b.i.d. 3. Seroquel 100 mg 1-1/2 tablets at bedtime. 4. Ativan 0.5 b.i.d. 5. Benztropine 0.5 at bedtime. 6. Amlodipine 10 mg daily. 7. Senokot 2 tablets at bedtime. 8. Vitamin C daily. 9. Keppra 500 b.i.d. 10. Aspirin 81 mg daily. 11. Calcium b.i.d. 12. . 13. MiraLax 17 grams daily. 14. Colace 100 mg b.i.d. 15. Patient was given Levaquin 500 mg daily for 1 week.
== END 2017-06-14 11:10 | DRG 689 ==
LOC: ERS 09:53 → SURG B 11:00
PROVIDERS: ADMIT Internal Medicine; ATTEND Internal Medicine
DX: N39.0 Urinary tract infection, site not specified (principal); G93.41 Metabolic encephalopathy; L89.152 Pressure ulcer of sacral region, stage 2; N17.9 Acute kidney failure, unspecified; E86.0 Dehydration; D63.8 Anemia in other chronic diseases classified elsewhere; F03.90 Unspecified dementia, unspecified severity, without behavioral disturbance, psychotic disturbance, mood disturbance, and anxiety; F41.9 Anxiety disorder, unspecified; G40.909 Epilepsy, unspecified, not intractable, without status epilepticus; I10 Essential (primary) hypertension; Z66 Do not resuscitate
CPT/HCPCS: 36415; 70450; 71045; 80048; 80053; 81003; 81015; 82553; 82607; 82728; 82746; 83540; 83550; 83605; 83880; 84484; 85025; 87086; 87804; 96365; 96367; A4353; J0696; J3370; J7050

== ENCOUNTER 2017-08-26 11:47 | Inpatient (IN) | payer MEDICARE, MEDICAID ==
[2017-08-26 13:02] LABS: #Eosinphils 0.1 thou/uL (0.0-0.7); #Lymphocytes 1.9 thou/uL (1.20-3.40); #Monocytes 0.5 thou/uL (0.11-0.59); #Neutrophils 6.2 thou/uL (1.40-6.50); %Basophils 0.1 % (0.0-1.0); %Eosinophils 0.7 % (0.0-10.0); %Lymphocytes 22.3 % (21.0-51.0); %Neutrophils 70.9 % (42.0-75.0); Hemoglobin 14.4 g/dL (12.0-16.0); Mean Corpuscular HGB CONC 30.8 g/dL (32.0-36.0); Mean Corpuscular Hemoglobin 23.8 pg (27.0-31.0); Mean Corpuscular Volume 77.2 fl (81.0-99.0); Mean Platelet Volume 6.2 fL (7.4-10.4); Platelet Count 210 thou/uL (130-400); Red Blood Cell (RBC) Count 6.07 mill/uL (4.20-5.40); White Blood Cell (WBC) Count 8.7 thou/uL (4.8-10.8)
--- NOTE | 2017-08-26 13:07 | RAD ---
PORTABLE CHEST ONE VIEW: Date: 08-26-17 Time: 11:50 a.m. History: Facial droop, more lethargic than normal. FINDINGS: Comparison made with exam of 06-06-17. The heart size is normal. The aorta is tortuous. The lungs are well expanded without focal areas of c onsolidation, pneumothorax, or pleural effusions. There are degenerative changes in the shoulder join ts. IMPRESSION: No radiographic evidence of acute cardiopulmonary process. POS: [facility]
[2017-08-26 13:16] LABS: MDiff Complete? YES; Microcytosis SLIGHT = 6-15 cells (100X) (0-5/hpf); Polychromasia SLIGHT = 2-3 cells (100X) (0-2/hpf)
[2017-08-26 13:23] LABS: CKMB 0.7 ng/mL (0-6.6); Troponin I Less than 0.010 ng/mL (< 0.028)
[2017-08-26] MEDS ORDERED: Labetalol HCl 100 MG/20 ML VIAL ONE ×2 (13:54→15:58)
[2017-08-26 14:25] LABS: Albumin 4.2 g/dL (3.4-4.8)
[2017-08-26 14:26] LABS: Chloride 108 mmol/L (98-107); Potassium 3.9 mmol/L (3.5-5.1); Sodium 141 mmol/L (136-145)
[2017-08-26 14:27] LABS: Calcium 10.3 mg/dL (7.8-10.44)
[2017-08-26 14:28] LABS: Globulin 3.4 g/dL (2.4-3.5); Glucose 167 mg/dL (83-110); Protein, Total 7.6 g/dL (6.0-8.3)
[2017-08-26 14:29] LABS: Anion Gap 13 mmol/L (10-20); Carbon Dioxide 24 mmol/L (23-31)
[2017-08-26 14:30] LABS: Alkaline Phosphatase 83 U/L (40-150); Bilirubin, Total 0.3 mg/dL (0.2-1.2)
[2017-08-26 14:31] LABS: Calc. Creatinine Clearance 0 mL/min (70-130); Estimated GFR-MDRD 58
[2017-08-26 14:32] LABS: BUN (Urea Nitrogen) 20 mg/dL (9.8-20.1)
[2017-08-26 14:33] LABS: AST (SGOT) 11 U/L (5-34)
[2017-08-26 14:34] LABS: ALT (SGPT) 7 U/L (8-55); Lipase 7 U/L (8-78)
[2017-08-26 15:22] LABS: Bilirubin Negative (Negative); Blood, Urine Moderate (Negative); Clarity TURBID (Clear); Glucose, Urine (Dipstick) Negative (Negative); Leukocyte Large (Negative); Nitrite Negative (Negative); Protein, Urine (Dipstick) 100 mg/dL (Neg-Trace); Specific Gravity, Urine 1.025 (1.002-1.036); Urobilinogen 0.2 mg/dL (0.2-1.0); pH, Urine 7.5 (5.0-9.0)
[2017-08-26 15:23] LABS: Bacteria/HPF 4+ HPF (None Seen)
[2017-08-26 15:24] LABS: Pathc Cast-AUWi Flag 2.89 (0-2.49)
[2017-08-26 15:32] LABS: Yeast-All Forms None Seen HPF (None Seen)
[2017-08-26 15:33] LABS: Hyaline Casts/LPF 0-3 HYALINE CAST LPF (0-3 Hyaline)
[2017-08-26] MEDS ORDERED: cefTRIAXone\\ROCEPHIN 2 GM VIAL ONE (15:58)
[2017-08-26] MEDS ORDERED: hydrALAZINE 20 MG/ML VIAL ONE (16:15)
--- NOTE | 2017-08-26 16:31 | CT ---
CT BRAIN WITHOUT CONTRAST: 08/26/17 HISTORY: Altered mental status FINDINGS: Changes of cortical atrophy, chronic small vessel ischemic disease, old left occipital lobe infarctio n and right frontal craniotomy changes are again noted. The ventricular size is stable and the basila r cisterns patent. No evidence of acute infarction, hemorrhage, midline shift, or abnormal extra-axia l fluid collections are seen. No acute cavitary adenoma disease seen. The paranasal sinuses and masto id air cells are well aerated. Calcific density in the left frontal scalp is again seen. IMPRESSION: Stable exam. No CT evidence of acute intracranial process. POS: [facility]
[2017-08-26 17:17] LABS: Lactic Acid 4.7 mmol/L (0.5-2.2)
[2017-08-26 17:26] LABS: Troponin I Less than 0.010 ng/mL (< 0.028)
[2017-08-26] MEDS ORDERED: Ondansetron ODT 4 MG TAB SL PRN (17:46)
[2017-08-26] MEDS ORDERED: Ondansetron HCl/PF 4 MG/2 ML Vial IVP PRN (17:46)
[2017-08-26] MEDS ORDERED: Gentamicin Sulfate 300 MG in Sodium Chloride 0.9% 100 ML IVPB SCH (18:30)
[2017-08-26] MEDS: Dextrose 5 %-0.45 % NaCl 1,000 ML IV SCH (18:41)
[2017-08-26] MEDS ORDERED: Vancomycin HCl 1 GM in Premix Bag 1 BAG IVPB SCH (18:45)
[2017-08-26] MEDS: Sodium Chloride 0.9% 1,000 ML IV SCH (19:33)
[2017-08-26 20:19] LABS: Troponin I Less than 0.010 ng/mL (< 0.028)
[2017-08-26] MEDS: Lorazepam 0.5 MG TAB PO SCH (21:35)
[2017-08-26] MEDS: Benztropine 1 MG TAB PO SCH (21:35)
[2017-08-26] MEDS: Senokot S 8.6-50 MG TAB PO SCH (21:36)
[2017-08-26] MEDS: levETIRAcetam 500 MG TAB PO SCH (21:36)
[2017-08-26] MEDS: Ferrous Sulfate 325 MG TAB PO SCH (21:37)
[2017-08-26] MEDS: Mirtazapine 15 MG TAB PO SCH (21:37)
[2017-08-26] MEDS: Docusate 100 MG CAP PO SCH (21:37)
[2017-08-26] MEDS: Refresh (Polyvinyl Alcohol 1.4%/Povidone 0.6%) Opth Drops EA EYE SCH (21:37)
[2017-08-26] MEDS: Calcium Carbonate + Vit D 1 TAB PO SCH (21:37)
[2017-08-26] MEDS: QUEtiapine Fumarate ER 50 MG TAB PO SCH (21:38)
[2017-08-27] MEDS: Sodium Chloride 0.9% 1,000 ML IV SCH (01:30)
[2017-08-27] MEDS ORDERED: Vancomycin HCl 1 GM in Premix Bag 1 BAG IVPB SCH (06:00)
--- NOTE | 2017-08-27 06:00 | HP ---
DATE OF ADMISSION: 08/26/2017 REASON FOR ADMISSION and CHIEF COMPLAINT: Fever, change in mental status. HISTORY OF PRESENT ILLNESS: Ms. Rangel is an 87-year-old -[place]ym[place] female with past medical history of hypertension and dementia, who was found to have temperature of 101 to 101.9 degrees at the care home. The patient also showed some change in mental status with lethargy, but did not have any cough, any shortness of breath, nausea, or vomiting. The patient is also not moving much, occasionally ambulates. The patient also vomited one time. So, in view of the change in mental status, high fever, and vomiting, the patient was sent to the emergency room for evaluation. In the ER, the patient was evaluated and found to have urinary tract infection, met criteria for sepsis. So, she was given a dose of vancomycin, gentamicin, Rocephin; and also the patient was found to be very hypertensive with blood pressure of 216/122. So, the patient received a couple of doses of labetalol, after which it came down to 170 systolic. The patient was admitted to telemetry in ER for the hypertensive emergency. PAST MEDICAL HISTORY: 1. Anxiety disorder. 2. Dementia. 3. Depression. 4. History of psychosis. 5. History of cerebrovascular accident. 6. Hypertension. 7. Seizure disorder. 8. History of urinary tract infection. PAST SURGICAL HISTORY: Nothing significant. CURRENT MEDICATIONS: Aspirin 81 mg daily, calcium with vitamin D once daily, Keppra 500 mg b.i.d., Senna daily, vitamin C daily, amlodipine 5 mg daily, benztropine 1 mg half tablet daily, Risperdal 0.5 mg b.i.d., Ativan 0.5 mg b.i.d., Remeron 15 mg at bedtime, Seroquel 150 mg once a day, MiraLax 17 grams daily, Colace daily, ferrous sulfate b.i.d. ALLERGIES: NKDA. FAMILY HISTORY: Nothing of interest. SOCIAL HISTORY: The patient is a care home resident. History of smoking. REVIEW OF SYSTEMS: Unable to obtain because of the patient's mental status. PHYSICAL EXAMINATION: GENERAL: The patient is awake, but not communicating. VITAL SIGNS: Temperature 98, pulse 95, respirations 20, blood pressure 170/106. HEENT: Head is normocephalic, atraumatic. Pupils are equal and reactive. Nasopharynx is pale and dry. Hard and soft palate, no lesions seen. SKIN: Turgor decreased. NECK: Supple. No JVD. LUNGS: Breath sounds are diminished bilaterally percussion dull bilaterally. No rales, no rhonchi. HEART: S1, S2 regular. No murmurs. ABDOMEN: Soft. No distention, no tenderness, no organomegaly. Bowel sounds are present. RECTAL: Deferred. CENTRAL NERVOUS SYSTEM: The patient is awake, but not very alert, not communicating. Motor system: Power 4/5 in all extremities. Deep tendon reflex 2+ bilaterally. Plantar downgoing. Sensory intact. LABORATORY AND X-RAY FINDINGS: CBC shows WBC 8.7, hemoglobin 14, hematocrit 46 , platelets 210. Metabolic panel: Sodium 140, potassium 3.9, chloride 108, CO2 of 24, urea nitrogen 20, creatinine 1, glucose 167. lactic acid went up to 4.7. CK-MB is 0.7. Troponin I is less than 0.010. Urinalysis: Wbc's greater than 50, rbc's 4-6, leukocyte esterase large, blood moderate, bacteria 4 +. Chest x-ray, negative. CT of the brain, unremarkable. EKG shows normal sinus rhythm, no acute ST-T wave changes seen. ASSESSMENT: 1. Urinary tract infection, rule out sepsis. 2. Fever, possibly secondary to urinary tract infection. 3. Hypertensive emergency. 4. Dementia. 5. Psychosis. 6. Seizure disorder. 7. Anxiety disorder. 8. History of cerebrovascular accident. PLAN: 1. Vital signs q.4 hours. 2. Activity: As tolerated. 3. Allergies: NKDA. 4. IV fluid, D5 half normal at 80 mL per hour. 5. Rocephin 2 grams IV piggyback daily. 6. Urine culture. 7. Blood culture. 8. Continue care home medications. 9. Diet: Regular. CODE STATUS: The patient is DNR. MTDD
[2017-08-27] MEDS: Dextrose 5 %-0.45 % NaCl 1,000 ML IV SCH (09:54)
[2017-08-27] MEDS: cefTRIAXone\\ROCEPHIN 2 GM in Sodium Chloride 0.9% 100 ML IVPB SCH (09:54)
[2017-08-27] MEDS: Lorazepam 0.5 MG TAB PO SCH ×2 (09:55→19:55)
[2017-08-27] MEDS: Amlodipine 10 MG TAB PO SCH (09:55)
[2017-08-27] MEDS: Ascorbic Acid 500 mg Chewable Tablet PO SCH (09:55)
[2017-08-27] MEDS: Ferrous Sulfate 325 MG TAB PO SCH ×2 (09:55→19:55)
[2017-08-27] MEDS: levETIRAcetam 500 MG TAB PO SCH ×2 (09:55→19:55)
[2017-08-27] MEDS: Calcium Carbonate + Vit D 1 TAB PO SCH ×2 (09:55→19:55)
[2017-08-27] MEDS: Docusate 100 MG CAP PO SCH ×2 (09:55→19:55)
[2017-08-27] MEDS: Polyethylene Glycol 3350 17 GM Packet PO SCH (09:56)
[2017-08-27] MEDS: Labetalol HCl 100 MG/20 ML VIAL SLOW IVP PRN ×2 (10:00→19:53)
[2017-08-27] MEDS: Refresh (Polyvinyl Alcohol 1.4%/Povidone 0.6%) Opth Drops EA EYE SCH ×3 (15:47→19:55)
[2017-08-27] MEDS: Vancomycin HCl 750 MG in Sodium Chloride 0.9% 250 ML 250 ML IVPB SCH (19:23)
[2017-08-27] MEDS: QUEtiapine Fumarate ER 50 MG TAB PO SCH (19:54)
[2017-08-27] MEDS: Senokot S 8.6-50 MG TAB PO SCH (19:54)
[2017-08-27] MEDS: Mirtazapine 15 MG TAB PO SCH (19:55)
[2017-08-27] MEDS: Benztropine 1 MG TAB PO SCH (19:57)
[2017-08-28] MEDS: Dextrose 5 %-0.45 % NaCl 1,000 ML IV SCH ×2 (02:59→18:22)
[2017-08-28 06:08] LABS: Anion Gap 12 mmol/L (10-20); BUN (Urea Nitrogen) 12 mg/dL (9.8-20.1); Calc. Creatinine Clearance 38 mL/min (70-130); Calcium 9.9 mg/dL (7.8-10.44); Carbon Dioxide 22 mmol/L (23-31); Chloride 111 mmol/L (98-107); Estimated GFR-MDRD 69; Glucose 127 mg/dL (83-110); Potassium 3.5 mmol/L (3.5-5.1); Sodium 141 mmol/L (136-145)
[2017-08-28 06:10] LABS: Lactic Acid 2.2 mmol/L (0.5-2.2)
[2017-08-28 06:22] LABS: #Eosinphils 0.1 thou/uL (0.0-0.7); #Lymphocytes 2.1 thou/uL (1.20-3.40); #Monocytes 0.6 thou/uL (0.11-0.59); %Basophils 0.3 % (0.0-1.0); %Eosinophils 1.1 % (0.0-10.0); %Lymphocytes 35.6 % (21.0-51.0); %Monocytes 10.4 % (0.0-10.0); %Neutrophils 52.6 % (42.0-75.0); Anisocytosis SLIGHT = 6-15 cells (100X) (0-5/hpf); Hemoglobin 10.5 g/dL (12.0-16.0); Hypochromia SLIGHT = 6-15 cells (100X) (0-5/hpf); MDiff Complete? YES; Mean Corpuscular Hemoglobin 24.5 pg (27.0-31.0); Mean Corpuscular Volume 78.9 fl (81.0-99.0); Platelet Count 183 thou/uL (130-400); RBC Distribution Width 20.6 % (11.5-14.5); Red Blood Cell (RBC) Count 4.29 mill/uL (4.20-5.40); Schistocytes SLIGHT = 2-5 cells (100X) (0-1/hpf); White Blood Cell (WBC) Count 5.8 thou/uL (4.8-10.8)
[2017-08-28] MEDS: Labetalol HCl 100 MG/20 ML VIAL SLOW IVP PRN (08:10)
[2017-08-28] MEDS: Amlodipine 10 MG TAB PO SCH (09:17)
[2017-08-28] MEDS: Ascorbic Acid 500 mg Chewable Tablet PO SCH (09:17)
[2017-08-28] MEDS: Calcium Carbonate + Vit D 1 TAB PO SCH ×2 (09:17→19:35)
[2017-08-28] MEDS: Ferrous Sulfate 325 MG TAB PO SCH ×2 (09:18→19:36)
[2017-08-28] MEDS: Lorazepam 0.5 MG TAB PO SCH ×2 (09:18→19:36)
[2017-08-28] MEDS: Docusate 100 MG CAP PO SCH ×2 (09:18→19:36)
[2017-08-28] MEDS: Polyethylene Glycol 3350 17 GM Packet PO SCH (09:18)
[2017-08-28] MEDS: levETIRAcetam 500 MG TAB PO SCH ×2 (09:18→19:36)
[2017-08-28] MEDS: Refresh (Polyvinyl Alcohol 1.4%/Povidone 0.6%) Opth Drops EA EYE SCH ×3 (09:29→20:20)
[2017-08-28] MEDS: cefTRIAXone\\ROCEPHIN 2 GM in Sodium Chloride 0.9% 100 ML IVPB SCH (09:29)
--- NOTE | 2017-08-28 09:40 | CT ---
CT BRAIN: DATE: 08/28/17. PROVIDED CLINICAL HISTORY: Head pain status post fall. FINDINGS: Comparison is made with the study dated 08/26/17. The ventricular system appears normal in size and m orphology. There is no evidence for intracranial hemorrhage or mass effect. Chronic microvascular i schemic changes and remote left DIPPER FISH distribution infarction appear unchanged with respect to the prio r study. Postoperative changes involving the right frontal skull are redemonstrated. The extracrani al soft tissues and osseous structures demonstrate no acute findings. IMPRESSION: No evidence for intracranial hemorrhage or mass effect. POS: [facility]
--- NOTE | 2017-08-28 13:52 | PRG ---
DATE OF SERVICE: 08/28/2017 SUBJECTIVE: Ms. Rangel is an 87-[facility] patient who was admitted for UTI. I am naveen rasmussen for Dr. Salazar. This patient is being treated with IV antibiotics. This morning due to the m ental status change, the patient underwent a CT scan of the head which showed no evidence of any acut e intracranial hemorrhage or mass effect. No other complaints. She remains agitated. OBJECTIVE: VITAL SIGNS: Blood pressure 134/78, heart rate 91, respiratory rate is 18, pulse ox 97%. GENERAL: Awake, agitated, not in overt distress. SKIN: Adequate turgor. HEENT: Pinkish conjunctivae, anicteric sclerae. LUNGS: Clear breath sounds. HEART: Normal sinus rhythm. No murmur, no gallops, no rubs. ABDOMEN: Globular, soft, nontender, no masses. EXTREMITIES: No edema. NEUROLOGIC: Not following my commands. She has spasticity of the upper extremities. MEDICATIONS: Medications of 08/28/2017 was reviewed. LABORATORY DATA: Labs of 08/28/2017 white count 5.8, hemoglobin 10.5, sodium 141, potassium 3.5, chl oride 111, carbon dioxide 22, BUN 12, creatinine 0.93, glucose 127, calcium 9.9. Lactic acid 2.2, tr oponin I less than 0.010. CT scan of the brain, no acute intracranial abnormality. ASSESSMENT AND PLAN: 1. Presumptive infection -- on empiric antibiotics. 2. Spasticity of the extremities -- this may be a reflection of her current Cogentin. This may be a reflection of early extrapyramidal signs and symptoms. Continue supportive care. Adjust medication as needed. Overall, agree with current management.
[2017-08-28 14:15] VITALS: BMI 22.4
[2017-08-28 18:01] LABS: Vancomycin, Trough 6.4 ug/mL
[2017-08-28] MEDS: Vancomycin HCl 750 MG in Sodium Chloride 0.9% 250 ML 250 ML IVPB SCH (18:21)
[2017-08-28] MEDS ORDERED: Vancomycin HCl 500 MG in Sodium Chloride 0.9% 100 ML IVPB SCH (18:45)
[2017-08-28] MEDS: Benztropine 1 MG TAB PO SCH (19:35)
[2017-08-28] MEDS: Mirtazapine 15 MG TAB PO SCH (19:36)
[2017-08-28] MEDS: QUEtiapine Fumarate ER 50 MG TAB PO SCH (19:36)
[2017-08-28] MEDS: Senokot S 8.6-50 MG TAB PO SCH (19:36)
[2017-08-29] MEDS: Ferrous Sulfate 325 MG TAB PO SCH ×2 (09:36→20:55)
[2017-08-29] MEDS: Calcium Carbonate + Vit D 1 TAB PO SCH ×2 (09:36→20:54)
[2017-08-29] MEDS: Docusate 100 MG CAP PO SCH ×2 (09:36→20:55)
[2017-08-29] MEDS: levETIRAcetam 500 MG TAB PO SCH (09:36)
[2017-08-29] MEDS: Amlodipine 10 MG TAB PO SCH (09:36)
[2017-08-29] MEDS: Lorazepam 0.5 MG TAB PO SCH ×2 (09:36→20:55)
[2017-08-29] MEDS: Polyethylene Glycol 3350 17 GM Packet PO SCH (09:36)
[2017-08-29] MEDS: Ascorbic Acid 500 mg Chewable Tablet PO SCH (09:36)
[2017-08-29] MEDS: Refresh (Polyvinyl Alcohol 1.4%/Povidone 0.6%) Opth Drops EA EYE SCH ×3 (09:37→20:55)
[2017-08-29] MEDS: Dextrose 5 %-0.45 % NaCl 1,000 ML IV SCH ×2 (10:14→20:54)
[2017-08-29] MEDS: cefTRIAXone\\ROCEPHIN 2 GM in Sodium Chloride 0.9% 100 ML IVPB SCH (10:14)
[2017-08-29] MEDS ORDERED: Vancomycin HCl 1.25 GM in Sodium Chloride 0.9% 250 ML 250 ML IVPB SCH (18:00)
[2017-08-29] MEDS ORDERED: Sterile Water 10 ML VIAL FS PRN (18:36)
[2017-08-29] MEDS: Benztropine 1 MG TAB PO SCH (20:54)
[2017-08-29] MEDS: Senokot S 8.6-50 MG TAB PO SCH (20:55)
[2017-08-29] MEDS: Mirtazapine 15 MG TAB PO SCH (20:55)
[2017-08-29] MEDS: QUEtiapine Fumarate ER 50 MG TAB PO SCH (20:55)
[2017-08-30] MEDS: Ziprasidone 20 MG VIAL IM PRN (07:54)
[2017-08-30] MEDS: Ferrous Sulfate 325 MG TAB PO SCH (09:47)
[2017-08-30] MEDS: Amlodipine 10 MG TAB PO SCH (09:47)
[2017-08-30] MEDS: Calcium Carbonate + Vit D 1 TAB PO SCH ×2 (09:48→20:22)
[2017-08-30] MEDS: Lorazepam 0.5 MG TAB PO SCH ×2 (09:48→20:21)
[2017-08-30] MEDS: Ascorbic Acid 500 mg Chewable Tablet PO SCH (09:48)
[2017-08-30] MEDS: Docusate 100 MG CAP PO SCH ×2 (09:48→20:22)
[2017-08-30] MEDS: Polyethylene Glycol 3350 17 GM Packet PO SCH (09:48)
[2017-08-30] MEDS: Dextrose 5 %-0.45 % NaCl 1,000 ML IV SCH ×2 (11:54→21:30)
[2017-08-30] MEDS: Labetalol HCl 100 MG/20 ML VIAL SLOW IVP PRN ×2 (12:00→17:01)
[2017-08-30] MEDS: Refresh (Polyvinyl Alcohol 1.4%/Povidone 0.6%) Opth Drops EA EYE SCH ×3 (12:59→20:32)
[2017-08-30] MEDS: Senokot S 8.6-50 MG TAB PO SCH (20:21)
[2017-08-30] MEDS: Mirtazapine 15 MG TAB PO SCH (20:21)
[2017-08-30] MEDS: Benztropine 1 MG TAB PO SCH (20:22)
[2017-08-30] MEDS: QUEtiapine Fumarate ER 50 MG TAB PO SCH (20:22)
[2017-08-30] MEDS: levETIRAcetam 500 mg/5 ml Oral Solution PO SCH (20:48)
[2017-08-30] MEDS ORDERED: levETIRAcetam 500 MG TAB PO SCH (21:00)
[2017-08-31] MEDS: Ziprasidone 20 MG VIAL IM PRN (00:07)
[2017-08-31 06:29] LABS: Anion Gap 9 mmol/L (10-20); BUN (Urea Nitrogen) 7 mg/dL (9.8-20.1); Calc. Creatinine Clearance 49 mL/min (70-130); Calcium 9.2 mg/dL (7.8-10.44); Carbon Dioxide 23 mmol/L (23-31); Chloride 114 mmol/L (98-107); Estimated GFR-MDRD Greater than 90; Glucose 79 mg/dL (83-110); Sodium 143 mmol/L (136-145)
[2017-08-31 06:50] LABS: #Eosinphils 0.1 thou/uL (0.0-0.7); #Lymphocytes 2.1 thou/uL (1.20-3.40); #Monocytes 0.7 thou/uL (0.11-0.59); #Neutrophils 1.6 thou/uL (1.40-6.50); %Basophils 0.3 % (0.0-1.0); %Eosinophils 2.5 % (0.0-10.0); %Lymphocytes 46.9 % (21.0-51.0); %Monocytes 14.4 % (0.0-10.0); Anisocytosis SLIGHT = 6-15 cells (100X) (0-5/hpf); Hemoglobin 10.7 g/dL (12.0-16.0); MDiff Complete? YES; Mean Corpuscular HGB CONC 30.4 g/dL (32.0-36.0); Mean Corpuscular Hemoglobin 24.2 pg (27.0-31.0); Mean Corpuscular Volume 79.7 fl (81.0-99.0); Mean Platelet Volume 5.9 fL (7.4-10.4); PLT Morphology Comment Appears Adequate; Platelet Count 166 thou/uL (130-400); RBC Distribution Width 20.7 % (11.5-14.5); Red Blood Cell (RBC) Count 4.43 mill/uL (4.20-5.40); Schistocytes SLIGHT = 2-5 cells (100X) (0-1/hpf); White Blood Cell (WBC) Count 4.5 thou/uL (4.8-10.8)
[2017-08-31] MEDS: Docusate 100 MG CAP PO SCH ×2 (09:34→21:49)
[2017-08-31] MEDS: Amlodipine 10 MG TAB PO SCH (09:34)
[2017-08-31] MEDS: Lorazepam 0.5 MG TAB PO SCH ×2 (09:34→21:49)
[2017-08-31] MEDS: Calcium Carbonate + Vit D 1 TAB PO SCH ×2 (09:34→21:49)
[2017-08-31] MEDS: Ascorbic Acid 500 mg Chewable Tablet PO SCH (09:34)
[2017-08-31] MEDS: Polyethylene Glycol 3350 17 GM Packet PO SCH (09:35)
[2017-08-31] MEDS: levETIRAcetam 500 mg/5 ml Oral Solution PO SCH ×2 (09:35→22:22)
[2017-08-31] MEDS: Refresh (Polyvinyl Alcohol 1.4%/Povidone 0.6%) Opth Drops EA EYE SCH ×3 (09:35→21:50)
[2017-08-31] MEDS: Dextrose 5 %-0.45 % NaCl 1,000 ML IV SCH ×2 (09:48→21:59)
[2017-08-31] MEDS ORDERED: Potassium Chloride 20 MEQ TAB PO SCH (10:00)
[2017-08-31] MEDS: Labetalol HCl 100 MG/20 ML VIAL SLOW IVP PRN (17:29)
[2017-08-31] MEDS: Mirtazapine 15 MG TAB PO SCH (21:49)
[2017-08-31] MEDS: Senokot S 8.6-50 MG TAB PO SCH (21:49)
[2017-08-31] MEDS: Benztropine 1 MG TAB PO SCH (21:49)
[2017-08-31] MEDS: QUEtiapine Fumarate ER 50 MG TAB PO SCH ×2 (21:51)
[2017-08-31] MEDS: Potassium Chloride 20 MEQ TAB PO SCH (21:59)
[2017-08-31] MEDS: cloNIDine 0.1 MG TAB PO SCH (21:59)
[2017-08-31] MEDS: risperiDONE 0.25 MG TAB PO SCH (22:00)
[2017-09-01] MEDS: Potassium Chloride 20 MEQ TAB PO SCH (00:20)
[2017-09-01 05:43] LABS: Anion Gap 10 mmol/L (10-20); BUN (Urea Nitrogen) 6 mg/dL (9.8-20.1); Calc. Creatinine Clearance 47 mL/min (70-130); Calcium 9.2 mg/dL (7.8-10.44); Carbon Dioxide 24 mmol/L (23-31); Chloride 112 mmol/L (98-107); Estimated GFR-MDRD 90; Glucose 91 mg/dL (83-110); Sodium 142 mmol/L (136-145)
[2017-09-01] MEDS: Refresh (Polyvinyl Alcohol 1.4%/Povidone 0.6%) Opth Drops EA EYE SCH ×3 (09:51→21:26)
[2017-09-01] MEDS: levETIRAcetam 500 mg/5 ml Oral Solution PO SCH ×2 (09:51→21:26)
[2017-09-01] MEDS: Calcium Carbonate + Vit D 1 TAB PO SCH ×2 (09:52→21:26)
[2017-09-01] MEDS: Ascorbic Acid 500 mg Chewable Tablet PO SCH (09:52)
[2017-09-01] MEDS: cloNIDine 0.1 MG TAB PO SCH (09:52)
[2017-09-01] MEDS: Lorazepam 0.5 MG TAB PO SCH ×2 (09:52→21:18)
[2017-09-01] MEDS: risperiDONE 0.25 MG TAB PO SCH ×2 (09:52→21:19)
[2017-09-01] MEDS: Amlodipine 10 MG TAB PO SCH (09:52)
[2017-09-01] MEDS: Polyethylene Glycol 3350 17 GM Packet PO SCH (09:52)
[2017-09-01] MEDS: Docusate 100 MG CAP PO SCH ×2 (09:52→21:26)
[2017-09-01] MEDS: Dextrose 5 %-0.45 % NaCl 1,000 ML IV SCH (12:25)
[2017-09-01] MEDS ORDERED: QUEtiapine Fumarate ER 50 MG TAB PO SCH (21:00)
[2017-09-01] MEDS: cloNIDine 0.2 MG TAB PO SCH (21:18)
[2017-09-01] MEDS: Mirtazapine 15 MG TAB PO SCH (21:18)
[2017-09-01] MEDS: Benztropine 1 MG TAB PO SCH (21:23)
[2017-09-01] MEDS: Senokot S 8.6-50 MG TAB PO SCH (21:26)
[2017-09-01] MEDS: QUEtiapine Fumarate ER 50 MG TAB PO SCH (21:27)
[2017-09-02] MEDS: Dextrose 5 %-0.45 % NaCl 1,000 ML IV SCH ×2 (01:49→11:37)
[2017-09-02 07:31] VITALS: TEMP 97.6
[2017-09-02] MEDS: levETIRAcetam 500 mg/5 ml Oral Solution PO SCH (09:21)
[2017-09-02] MEDS: Refresh (Polyvinyl Alcohol 1.4%/Povidone 0.6%) Opth Drops EA EYE SCH (09:23)
[2017-09-02] MEDS: Polyethylene Glycol 3350 17 GM Packet PO SCH (09:23)
[2017-09-02] MEDS: Amlodipine 10 MG TAB PO SCH (09:23)
[2017-09-02] MEDS: Calcium Carbonate + Vit D 1 TAB PO SCH (09:23)
[2017-09-02] MEDS: Docusate 100 MG CAP PO SCH (09:24)
[2017-09-02] MEDS: Lorazepam 0.5 MG TAB PO SCH (09:24)
[2017-09-02] MEDS: cloNIDine 0.2 MG TAB PO SCH (09:24)
[2017-09-02] MEDS: risperiDONE 0.25 MG TAB PO SCH (09:24)
[2017-09-02] MEDS: Ascorbic Acid 500 mg Chewable Tablet PO SCH (09:36)
[2017-09-02 12:18] VITALS: BP 159/80
--- NOTE | 2017-09-03 13:09 | DIS ---
DATE OF ADMISSION: 08/26/2017 DATE OF DISCHARGE: 09/02/2017 ADMITTING DIAGNOSES: 1. Urinary tract infection, rule out sepsis. 2. Fever, possibly secondary to urinary tract infection. 3. Hypertensive emergency. 4. Dementia. 5. Psychosis. 6. Seizure disorder. 7. Anxiety disorder. FINAL DIAGNOSES: 1. Urinary tract infection, no evidence of sepsis. 2. Fever, resolved. 3. Hypertensive emergency, improved. 4. Dementia. 5. Psychosis. 6. Seizure disorder. 7. Anxiety disorder. BRIEF SUMMARY OF HOSPITAL COURSE: Ms. Rangel is an 87-year-old -[place] female admitted rachel use of fever 101 with leukocytosis. Patient was found to have urinary tract infection, started on Ro cephin and vancomycin. Patient suspected sepsis and she also had a markedly elevated systolic blood pressure of 170. Cultures were done. She is to continue antibiotics and IV fluids. Her medications were adjusted and blood pressure came down after few days. Her urine culture revealed growth of van comycin-resistant Enterococcus and Enterococcus faecalis, so her antibiotic were changed to ampicilli n, vancomycin, and Rocephin were stopped. Patient does monitor, her fever resolved. Patient was sta rted to eat better. Blood culture revealed no growth. In view of improvement, patient was discharge d. At the time of discharge, she was stable. Her vital signs stable. Lungs are clear. Heart sound s regular. Abdomen is soft and nontender. Bowel sounds present. DISCHARGE MEDICATIONS: Include ferrous sulfate 325 mg b.i.d., Senokot 2 tablets daily, vitamin C hardeep ly, MiraLax 17 grams daily, Remeron 15 mg at bedtime, Keppra 500 b.i.d., Colace 100 mg b.i.d., calciu m with vitamin D b.i.d., Ativan 0.5 b.i.d., aspirin 81 mg daily, amlodipine 10 mg daily, Seroquel XR 150 at bedtime, risperidone 0.25 b.i.d., ampicillin 500 mg q.i.d. for 7 days, and clonidine 0.2 b.i.d . FOLLOWUP: [facility]
--- NOTE | 2017-09-08 13:43 | PQF ---
GABRIELA NIÑO VENKAT R MD [id number] [id number] CLINICAL DOCUMENTATION CLARIFICATION FORM: POST DISCHARGE DATE: 09/08/2017 ATTN: Dr. Salazar Please exercise your independent, professional judgment in responding to the clarification form. Clinical indicators are provided on the bottom of this form for your review Please check appropriate box(s) to clarify if the following diagnosis has been ruled in or ruled out: Sepsis [ ] Ruled in diagnosis [ ] Continue to treat [ ] Resolved [y ] Ruled out diagnosis [ ] Cannot rule out diagnosis [ ] Other diagnosis (please specify) [ ] Unable to determine In addition, please specify: Present on Admission (POA): [ y] Yes [ ] No [ ] Unable to determine For continuity of documentation, please document condition throughout progress notes and discharge summary. Thank You. CLINICAL INDICATORS - SIGNS / SYMPTOMS / LABS Per H&P: In the ER, the patient was evaluated and found to have urinary tract infection, met criteria for sepsis. Assessment: Urinary tract infection, rule out sepsis. Per ED: Fever 101 to 101.9. Tachycardia: 101. Diagnosis: Sepsis. RISK FACTORS Per H&P: Urinary tract infection. TREATMENTS (per H&P) IV Rocephin. IV fluid. (This form is maintained as a part of the permanent medical record) 2014 [email or web address]. All Rights Reserved Leena [email or web address] [phone] MTDRj
--- NOTE | 2017-09-16 06:59 | PQF ---
GABRIELA NIÑO VENKAT R MD [id number] O-[id number] CLINICAL DOCUMENTATION CLARIFICATION FORM: POST DISCHARGE Addendum to original discharge summary date: 09/09/2017 DATE: 09/16/2017 ATTN: Dr. Salazar Please exercise your independent, professional judgment in responding to the clarification form. Clinical indicators are provided on the bottom of this form for your review Please specify the cause of patient's metabolic encephalopathy Please check appropriate box(s): [ y] Metabolic encephalopathy due to uti [ ] Other diagnosis (please specify) [ ] Unable to determine In addition, please specify: Present on Admission (POA): [ y] Yes [ ] No [ ] Unable to determine For continuity of documentation, please document condition throughout progress notes and discharge summary. Thank You. CLINICAL INDICATORS - SIGNS / SYMPTOMS / LABS Per H&P: Change in mental status. Per 08/29 progress note: Encephalopathy. Per 08/30 progress note: Metabolic encephalopathy. Per progress note: Metabolic encephalopathy. RISK FACTORS (per H&P) Urinary tract infection. Dementia with agitation. Hypertensive emergency. TREATMENTS: (per H&P) IV Rocephin. IV Fluids. (This form is maintained as a part of the permanent medical record) 2014 [employer] All Rights Reserved Leena [email or web address] [phone] MTDD
== END 2017-09-02 13:00 | DRG 689 ==
LOC: ERS 11:47 → 2NO 16:15 → T4-A 08-28 18:54
PROVIDERS: ADMIT Internal Medicine; ATTEND Internal Medicine
DX: N39.0 Urinary tract infection, site not specified (principal); G93.41 Metabolic encephalopathy; I16.1 Hypertensive emergency; I10 Essential (primary) hypertension; G40.909 Epilepsy, unspecified, not intractable, without status epilepticus; F41.9 Anxiety disorder, unspecified; F32.9 Major depressive disorder, single episode, unspecified; F03.90 Unspecified dementia, unspecified severity, without behavioral disturbance, psychotic disturbance, mood disturbance, and anxiety; R45.1 Restlessness and agitation; B95.2 Enterococcus as the cause of diseases classified elsewhere; Z16.21 Resistance to vancomycin; Z86.73 Personal history of transient ischemic attack (TIA), and cerebral infarction without residual deficits; Z79.82 Long term (current) use of aspirin; Z79.899 Other long term (current) drug therapy
CPT/HCPCS: 36415; 51701; 70450; 71045; 80048; 80053; 80202; 81003; 81015; 82553; 83605; 83690; 83880; 84484; 85025; 87040; 87077; 87086; 87186; 87804; 93005; 96361; 96365; 96375; 96376; A4216; A4353; G8996-GN-CK; G8996-GN-CM; G8996-GN-CN; G8997-GN-CK; J0290; J0360; J0696; J1580; J1953; J3370; J3486; J7050

== ENCOUNTER 2017-10-01 11:23 | Inpatient (IN) | payer MEDICARE, MEDICAID ==
--- NOTE | 2017-10-01 13:05 | RAD ---
SINGLE VIEW CHEST: HISTORY: Fever. COMPARISON: 08/26/2017 FINDINGS: A single view of the chest shows a normal sized cardiomediastinal silhouette with atherosclerotic leah cifications in the aorta. There is no evidence of consolidation, mass, or pleural effusion. Degener ative changes are seen in the spine. IMPRESSION: 1. No evidence of acute cardiopulmonary disease. 2. Atherosclerotic disease. POS: [facility]
[2017-10-01 13:07] LABS: Clarity Opaque (Clear)
[2017-10-01 13:09] LABS: Bilirubin Negative (Negative); Blood, Urine Large (Negative); Glucose, Urine (Dipstick) Negative (Negative); Leukocyte Large (Negative); Nitrite Negative (Negative); Protein, Urine (Dipstick) 300 mg/dL (Neg-Trace); Urobilinogen 0.2 mg/dL (0.2-1.0)
[2017-10-01 13:13] LABS: Other Microscopic Description Less than 2 mL rec'd
[2017-10-01 13:14] LABS: Bacteria/HPF 4+ HPF (None Seen); Hyaline Casts/LPF NONE SEEN LPF (0-3 Hyaline)
[2017-10-01 13:15] LABS: Yeast-All Forms 1+ HPF (None Seen)
[2017-10-01 13:16] LABS: Crystals/HPF 4+ TRIPLE PHOS HPF (Negative)
[2017-10-01 13:17] LABS: #Lymphocytes 0.4 thou/uL (1.20-3.40); #Monocytes 0.2 thou/uL (0.11-0.59); #Neutrophils 4.4 thou/uL (1.40-6.50); %Eosinophils 0.1 % (0.0-10.0); %Lymphocytes 8.5 % (21.0-51.0); %Monocytes 4.2 % (0.0-10.0); %Neutrophils 87.2 % (42.0-75.0); Hemoglobin 10.2 g/dL (12.0-16.0); Mean Corpuscular Hemoglobin 24.8 pg (27.0-31.0); Mean Corpuscular Volume 80.3 fl (81.0-99.0); Mean Platelet Volume 6.7 fL (7.4-10.4); Platelet Count 137 thou/uL (130-400); RBC Distribution Width 19.8 % (11.5-14.5); Red Blood Cell (RBC) Count 4.09 mill/uL (4.20-5.40)
[2017-10-01 13:20] LABS: Anisocytosis MODERATE=16-30 cells (100X) (0-5/hpf); Hypochromia SLIGHT = 6-15 cells (100X) (0-5/hpf); MDiff Complete? YES; Ovalocytes SLIGHT = 2-5 cells (100X) (0-1/hpf); PLT Morphology Comment Appears Adequate; Polychromasia SLIGHT = 2-3 cells (100X) (0-2/hpf); Schistocytes SLIGHT = 2-5 cells (100X) (0-1/hpf); Target Cells SLIGHT = 2-5 cells (100X) (0-1/hpf)
[2017-10-01 13:28] LABS: ALT (SGPT) 9 U/L (8-55); AST (SGOT) 15 U/L (5-34); Alkaline Phosphatase 62 U/L (40-150); Anion Gap 13 mmol/L (10-20); BUN (Urea Nitrogen) 26 mg/dL (9.8-20.1); Bilirubin, Total 0.2 mg/dL (0.2-1.2); Calc. Creatinine Clearance 0 mL/min (70-130); Calcium 8.3 mg/dL (7.8-10.44); Carbon Dioxide 19 mmol/L (23-31); Chloride 111 mmol/L (98-107); Estimated GFR-MDRD 56; Globulin 2.4 g/dL (2.4-3.5); Glucose 196 mg/dL (83-110); Potassium 3.5 mmol/L (3.5-5.1); Protein, Total 5.4 g/dL (6.0-8.3); Sodium 139 mmol/L (136-145)
[2017-10-01] MEDS ORDERED: Gentamicin Sulfate 300 MG in Sodium Chloride 0.9% 100 ML IVPB SCH (13:45)
[2017-10-01] MEDS ORDERED: cefTRIAXone\\ROCEPHIN 2 GM VIAL ONE (13:48)
[2017-10-01] MEDS ORDERED: Ondansetron ODT 4 MG TAB SL PRN (16:23)
[2017-10-01] MEDS ORDERED: Sodium Chloride 0.9% 1,000 ML IV SCH (16:23)
[2017-10-01] MEDS ORDERED: Ondansetron HCl/PF 4 MG/2 ML Vial IVP PRN (16:23)
[2017-10-01] MEDS ORDERED: Senokot S 8.6-50 MG TAB PO SCH (21:30)
[2017-10-01] MEDS ORDERED: QUEtiapine Fumarate ER 50 MG TAB PO SCH (21:30)
[2017-10-01] MEDS ORDERED: Benztropine 1 MG TAB PO SCH (21:30)
[2017-10-01] MEDS ORDERED: levETIRAcetam 500 MG TAB PO SCH (21:30)
[2017-10-01] MEDS ORDERED: Lorazepam 0.5 MG TAB PO SCH (21:30)
[2017-10-01] MEDS ORDERED: cloNIDine 0.2 MG TAB PO SCH (21:30)
[2017-10-01] MEDS ORDERED: Calcium Carbonate + Vit D 1 TAB PO SCH (21:30)
[2017-10-01] MEDS ORDERED: Mirtazapine 15 MG TAB PO SCH (21:30)
[2017-10-01] MEDS ORDERED: Docusate 100 MG CAP PO SCH (21:30)
[2017-10-01] MEDS ORDERED: Artificial Tear Sol 15 ML BOT EA EYE SCH (21:30)
[2017-10-01] MEDS ORDERED: risperiDONE 0.25 MG TAB PO SCH (21:30)
[2017-10-01] MEDS ORDERED: levETIRAcetam 500 mg/5 ml Oral Solution PO SCH (22:30)
[2017-10-01] MEDS: Dextrose 5 %-0.45 % NaCl 1,000 ML IV SCH (22:35)
[2017-10-01] MEDS ORDERED: Lorazepam 0.5 MG TAB PO PRN (23:37)
[2017-10-02] MEDS: Fluconazole In NaCl,Iso-Osm 100 MG in Premix Bag 1 BAG IVPB SCH (08:24)
[2017-10-02] MEDS: Dextrose 5 %-0.45 % NaCl 1,000 ML IV SCH ×2 (08:32→18:05)
[2017-10-02] MEDS ORDERED: Prevnar 13-Val Conj/PF 0.5 ML SYRINGE IM ONE (09:00)
[2017-10-02] MEDS ORDERED: Fluconazole In NaCl,Iso-Osm 100 MG in Premix Bag 1 BAG IVPB SCH (09:00)
[2017-10-02] MEDS ORDERED: risperiDONE 0.25 MG TAB PO SCH (09:00)
[2017-10-02] MEDS ORDERED: Lorazepam 0.5 MG TAB PO SCH (09:00)
[2017-10-02] MEDS ORDERED: levETIRAcetam 500 MG TAB PO SCH (09:00)
[2017-10-02] MEDS: Amlodipine 10 MG TAB PO SCH (10:24)
[2017-10-02] MEDS: Ferrous Sulfate 325 MG TAB PO SCH ×2 (10:25→18:00)
[2017-10-02] MEDS: busPIRone HCl 5 MG TAB PO SCH ×3 (10:25→21:13)
[2017-10-02] MEDS: cloNIDine 0.2 MG TAB PO SCH ×2 (10:25→21:13)
[2017-10-02] MEDS: Artificial Tear Sol 15 ML BOT EA EYE SCH ×3 (10:25→21:12)
[2017-10-02] MEDS: Docusate 100 MG CAP PO SCH ×2 (10:26→21:13)
[2017-10-02] MEDS: Ascorbic Acid 500 mg Chewable Tablet PO SCH (10:26)
[2017-10-02] MEDS: Calcium Carbonate + Vit D 1 TAB PO SCH ×2 (10:26→21:21)
[2017-10-02] MEDS: Polyethylene Glycol 3350 17 GM Packet PO SCH (10:26)
[2017-10-02 15:38] LABS: Anion Gap 9 mmol/L (10-20); BUN (Urea Nitrogen) 11 mg/dL (9.8-20.1); Calc. Creatinine Clearance 50 mL/min (70-130); Calcium 8.6 mg/dL (7.8-10.44); Carbon Dioxide 21 mmol/L (23-31); Chloride 115 mmol/L (98-107); Estimated GFR-MDRD 88; Glucose 114 mg/dL (83-110); Potassium 3.7 mmol/L (3.5-5.1); Sodium 141 mmol/L (136-145)
[2017-10-02 15:54] LABS: Anisocytosis SLIGHT = 6-15 cells (100X) (0-5/hpf); Band 1 % (5-11); Eosinophils 1 % (0-10); Hemoglobin 10.3 g/dL (12.0-16.0); Hypochromia SLIGHT = 6-15 cells (100X) (0-5/hpf); Lymphocytes 32 % (21-51); MDiff Complete? YES; Mean Corpuscular HGB CONC 31.1 g/dL (32.0-36.0); Mean Corpuscular Volume 80.4 fl (81.0-99.0); Mean Platelet Volume 6.3 fL (7.4-10.4); Monocytes 3 % (0-10); Neutrophil 63 % (42-75); PLT Morphology Comment Appears Adequate; Platelet Count 173 thou/uL (130-400); RBC Distribution Width 19.9 % (11.5-14.5); White Blood Cell (WBC) Count 4.7 thou/uL (4.8-10.8)
--- NOTE | 2017-10-02 17:01 | HP ---
DATE OF ADMISSION: 10/01/2017 REASON AND CHIEF COMPLAINT: Fever, not responding, not eating well. HISTORY OF PRESENT ILLNESS: Ms. Rangel is an 87-year-old -[place]aysian female with past medical history of dementia, psychosis, seizure disorder, was found the patient with fever and not responding well, vomited 0nce. Patient also has been coughing somewhat with whitish sputum. Patient had temperature of 101.3 at the [facility] and has been difficult to arouse. With her change in mental status and fever, patient was sent to the hospital. In the ER, patient was evaluated and found to have a urinary tract infection and she was given 3 antibiotics, gentamicin, Rocephin and vancomycin and she was also given IV fluids, 1 L bolus was given. Patient admitted for further evaluation. Patient was in the hospital a few weeks ago for UTI due to vancomycin-resistant Enterococcus. PAST MEDICAL HISTORY: 1. Paranoid schizophrenia. 2. History of anemia, iron deficiency. 3. Dementia. 4. Hypertension. 5. Seizure disorder. 6. Anxiety disorder. 7. History of recurrent urinary tract infection. PAST SURGICAL HISTORY: Nothing significant. CURRENT MEDICATIONS: Patient is on amlodipine 10 mg daily, vitamin C daily, aspirin 81 mg daily, benztropine 0.5 daily, vitamin D daily, clonidine 0.2 b.i.d., Colace 100 mg b.i.d., ferrous sulfate b.i.d., Keppra 500 b.i.d., Ativan 0.5 b.i.d., Remeron 15 mg at bedtime, MiraLax 17 g daily, Seroquel 150 at bedtime, Risperdal 0.5 b.i.d., and Senna p.r.n. ALLERGIES: NKDA. FAMILY HISTORY: Nothing of interest. SOCIAL HISTORY: pt is a resident of [facility].. No history of smoking. No history of alcohol. REVIEW OF SYSTEMS: Unable to obtain because patient is awake, but not really responding, not answering any questions. PHYSICAL EXAMINATION: VITAL SIGNS: Temperature 101.8, pulse 97, respiration 20, blood pressure 160/80 HEENT: Head is normocephalic, atraumatic. Pupils equal and reactive to light. Nasopharynx is pale and dry. Hard and soft palate, no lesions seen. SKIN: Skin turgor decreased. NECK: Supple. No JVD. LUNGS: Bilateral air entry. No rales, no rhonchi. CARDIAC: S1, S2 regular. ABDOMEN: Soft, no distention, no tenderness. Normal bowel sounds present. NEUROLOGIC: No focal deficit. LABORATORY AND X-RAY FINDINGS: CBC shows WBC 5, hemoglobin 10, hematocrit 32, platelets 137,000. Metabolic panel: Sodium 139, potassium 3.5, chloride 111, CO2 of 19, BUN 26, creatinine 1.1, glucose 196, lactic acid 5. Urinalysis revealed WBC greater than 50, bacteria 4+, yeast 1+. Chest x-ray negative. ASSESSMENT: 1. Urinary tract infection, possible sepsis. 2. Acute kidney injury. 3. Metabolic encephalopathy, acute. 4. Hypertension, uncontrolled. 5. Dementia. 6. Seizure disorder. 7. Anxiety disorder. PLAN: 1. Vital signs q.4 hours. 2. Activity: As tolerated. 3. Allergies: NKDA. 4. IV fluids D5 half at 100 mL per hour. 5. Ampicillin 500 mg IV piggyback q.6 hours. 6. Continue [facility] medication. 7. Take urine urine cultures. 8. Blood cultures. 9. A.m. labs, CBC, base met. 10. Diflucan 100 mg daily. MTDD
[2017-10-02] MEDS ORDERED: Senokot S 8.6-50 MG TAB PO SCH (21:00)
[2017-10-02] MEDS ORDERED: QUEtiapine Fumarate ER 50 MG TAB PO SCH (21:00)
[2017-10-02] MEDS ORDERED: risperiDONE 1 MG TAB PO SCH (21:00)
[2017-10-02] MEDS: Benztropine 1 MG TAB PO SCH (21:12)
[2017-10-02] MEDS: Mirtazapine 15 MG TAB PO SCH (21:13)
[2017-10-02] MEDS: levETIRAcetam 500 mg/5 ml Oral Solution PO SCH (21:21)
[2017-10-03] MEDS: Dextrose 5 %-0.45 % NaCl 1,000 ML IV SCH ×2 (05:06→10:25)
[2017-10-03] MEDS: Fluconazole In NaCl,Iso-Osm 100 MG in Premix Bag 1 BAG IVPB SCH (08:01)
[2017-10-03] MEDS: Calcium Carbonate + Vit D 1 TAB PO SCH ×2 (08:08→18:55)
[2017-10-03] MEDS: Docusate 100 MG CAP PO SCH ×2 (08:08→18:55)
[2017-10-03] MEDS: busPIRone HCl 5 MG TAB PO SCH ×3 (08:08→19:58)
[2017-10-03] MEDS: Amlodipine 10 MG TAB PO SCH (08:08)
[2017-10-03] MEDS: cloNIDine 0.2 MG TAB PO SCH ×2 (08:08→19:59)
[2017-10-03] MEDS: Ascorbic Acid 500 mg Chewable Tablet PO SCH (08:09)
[2017-10-03] MEDS: Ferrous Sulfate 325 MG TAB PO SCH ×2 (08:09→16:53)
[2017-10-03] MEDS: Polyethylene Glycol 3350 17 GM Packet PO SCH (08:09)
[2017-10-03] MEDS: Artificial Tear Sol 15 ML BOT EA EYE SCH ×4 (08:47→19:59)
[2017-10-03] MEDS: cefTRIAXone\\ROCEPHIN 2 GM in Sodium Chloride 0.9% 100 ML IVPB SCH (11:56)
[2017-10-03] MEDS: levETIRAcetam 500 mg/5 ml Oral Solution PO SCH ×2 (11:56→19:59)
[2017-10-03] MEDS ORDERED: Labetalol HCl 100 MG/20 ML VIAL SLOW IVP PRN (15:07)
[2017-10-03] MEDS: Benztropine 1 MG TAB PO SCH (19:58)
[2017-10-03] MEDS: Mirtazapine 15 MG TAB PO SCH (19:58)
[2017-10-04] MEDS: Dextrose 5 %-0.45 % NaCl 1,000 ML IV SCH ×2 (03:55→08:37)
[2017-10-04 04:49] LABS: Anion Gap 11 mmol/L (10-20); BUN (Urea Nitrogen) 4 mg/dL (9.8-20.1); Calc. Creatinine Clearance 52 mL/min (70-130); Calcium 8.9 mg/dL (7.8-10.44); Carbon Dioxide 23 mmol/L (23-31); Chloride 110 mmol/L (98-107); Estimated GFR-MDRD Greater than 90; Glucose 112 mg/dL (83-110); Potassium 3.1 mmol/L (3.5-5.1); Sodium 141 mmol/L (136-145)
[2017-10-04 04:52] LABS: Lactic Acid 1.9 mmol/L (0.5-2.2)
[2017-10-04 05:17] LABS: Band 2 % (5-11); Eosinophils 2 % (0-10); Hemoglobin 10.7 g/dL (12.0-16.0); Lymphocytes 40 % (21-51); MDiff Complete? YES; Mean Corpuscular Volume 80.2 fl (81.0-99.0); Mean Platelet Volume 5.7 fL (7.4-10.4); Monocytes 7 % (0-10); Neutrophil 49 % (42-75); PLT Morphology Comment Appears Adequate; Platelet Count 229 thou/uL (130-400); RBC Distribution Width 19.6 % (11.5-14.5); Red Blood Cell (RBC) Count 4.47 mill/uL (4.20-5.40)
[2017-10-04] MEDS: Fluconazole In NaCl,Iso-Osm 100 MG in Premix Bag 1 BAG IVPB SCH (08:30)
[2017-10-04] MEDS: busPIRone HCl 5 MG TAB PO SCH ×3 (08:30→19:45)
[2017-10-04] MEDS: Amlodipine 10 MG TAB PO SCH (08:30)
[2017-10-04] MEDS: cloNIDine 0.2 MG TAB PO SCH ×2 (08:30→19:44)
[2017-10-04] MEDS: levETIRAcetam 500 mg/5 ml Oral Solution PO SCH ×2 (08:31→19:45)
[2017-10-04] MEDS: Ascorbic Acid 500 mg Chewable Tablet PO SCH (08:38)
[2017-10-04] MEDS: Ferrous Sulfate 325 MG TAB PO SCH ×2 (08:38→16:08)
[2017-10-04] MEDS: Docusate 100 MG CAP PO SCH ×2 (08:39→19:46)
[2017-10-04] MEDS: Calcium Carbonate + Vit D 1 TAB PO SCH ×2 (08:39→19:45)
[2017-10-04] MEDS: Polyethylene Glycol 3350 17 GM Packet PO SCH (08:40)
[2017-10-04] MEDS: cefTRIAXone\\ROCEPHIN 2 GM in Sodium Chloride 0.9% 100 ML IVPB SCH (11:54)
[2017-10-04] MEDS: Artificial Tear Sol 15 ML BOT EA EYE SCH ×3 (11:55→19:46)
[2017-10-04] MEDS: Potassium Chloride 20 MEQ in Premix Bag 1 BAG IVPB SCH ×2 (13:57→18:41)
[2017-10-04] MEDS ORDERED: Lorazepam 0.5 MG TAB PO PRN (18:34)
[2017-10-04] MEDS: Mirtazapine 15 MG TAB PO SCH (19:45)
[2017-10-04] MEDS: Benztropine 1 MG TAB PO SCH (19:45)
[2017-10-04] MEDS ORDERED: risperiDONE 1 MG TAB PO SCH (21:00)
[2017-10-05 05:47] LABS: Anion Gap 11 mmol/L (10-20); BUN (Urea Nitrogen) 6 mg/dL (9.8-20.1); Calc. Creatinine Clearance 48 mL/min (70-130); Calcium 9.6 mg/dL (7.8-10.44); Carbon Dioxide 24 mmol/L (23-31); Chloride 111 mmol/L (98-107); Estimated GFR-MDRD 82; Glucose 95 mg/dL (83-110); Potassium 4.2 mmol/L (3.5-5.1); Sodium 142 mmol/L (136-145)
[2017-10-05 06:32] LABS: Mean Corpuscular HGB CONC 30.8 g/dL (32.0-36.0); Mean Corpuscular Hemoglobin 24.5 pg (27.0-31.0); Mean Corpuscular Volume 79.5 fl (81.0-99.0); Mean Platelet Volume 11.4 fL (7.4-10.4); Platelet Count 242 thou/uL (130-400); RBC Distribution Width 19.7 % (11.5-14.5); Red Blood Cell (RBC) Count 4.89 mill/uL (4.20-5.40)
[2017-10-05] MEDS: Ferrous Sulfate 325 MG TAB PO SCH ×2 (07:37→15:46)
[2017-10-05] MEDS: busPIRone HCl 5 MG TAB PO SCH ×3 (07:37→20:55)
[2017-10-05] MEDS: Amlodipine 10 MG TAB PO SCH (07:37)
[2017-10-05] MEDS: Calcium Carbonate + Vit D 1 TAB PO SCH ×2 (07:37→20:55)
[2017-10-05] MEDS: Ascorbic Acid 500 mg Chewable Tablet PO SCH (07:37)
[2017-10-05] MEDS: Docusate 100 MG CAP PO SCH ×2 (07:38→20:56)
[2017-10-05] MEDS: cloNIDine 0.2 MG TAB PO SCH ×2 (07:38→20:55)
[2017-10-05] MEDS: Polyethylene Glycol 3350 17 GM Packet PO SCH (07:38)
[2017-10-05] MEDS: Artificial Tear Sol 15 ML BOT EA EYE SCH ×3 (07:38→22:20)
[2017-10-05] MEDS: Fluconazole In NaCl,Iso-Osm 100 MG in Premix Bag 1 BAG IVPB SCH (07:39)
[2017-10-05 08:46] LABS: Eosinophils 1 % (0-10); Lymphocytes 29 % (21-51); MDiff Complete? YES; Microcytosis SLIGHT = 6-15 cells (100X) (0-5/hpf); Monocytes 8 % (0-10); Neutrophil 42 % (42-75); PLT Morphology Comment Appears Adequate; Reactive Lymphocytes 20 % (0-10); Schistocytes SLIGHT = 2-5 cells (100X) (0-1/hpf)
[2017-10-05] MEDS: levETIRAcetam 500 mg/5 ml Oral Solution PO SCH ×2 (09:42→22:20)
[2017-10-05] MEDS: cefTRIAXone\\ROCEPHIN 2 GM in Sodium Chloride 0.9% 100 ML IVPB SCH (11:56)
[2017-10-05] MEDS: Dextrose 5 %-0.45 % NaCl 1,000 ML IV SCH (13:46)
--- NOTE | 2017-10-05 14:07 | PQF ---
DATE: 10-05-17 ATTN: DR. CARLIN WEBBER Please exercise your independent, professional judgment in responding to the clarification form. Clinical indicators are provided on the bottom of this form for your review Please check appropriate box(s) to clarify if the following diagnosis has been ruled in or ruled out: SEPSIS [ ] Ruled in diagnosis [ ] Continue to treat [ ] Resolved [ y] Ruled out diagnosis [ ] Other diagnosis [ ] Unable to determine In addition, please specify: Present on Admission (POA): [y ] Yes [ ] No [ ] Unable to determine For continuity of documentation, please document condition throughout progress notes and discharge summary. Thank You. CLINICAL INDICATORS - SIGNS / SYMPTOMS / LABS ER DX: SEPSIS, UTI ADMITTING ORDERS 10-01-17: UTI, SEPSIS PN 10-01-17: UTI R/O SEPSIS WBC: 10-01-17: 5.0, 6-06-20: 4.7 LACTIC ACID: 10-01-17: 5.0 RISK FACTORS: PN 10-01-17: UTI R/O SEPSIS RR: 10-05-17: 22, 22 TREATMENTS: (MAR) AMPICILLIN, IVF, FLUCONAZOLE, ROCEPHIN (This form is maintained as a part of the permanent medical record) 2014 [employer] All Rights Reserved [email or web address] Office: [phone] VENKATESH
[2017-10-05] MEDS: Mirtazapine 15 MG TAB PO SCH (20:55)
[2017-10-05] MEDS: risperiDONE 1 MG TAB PO SCH (22:19)
[2017-10-05] MEDS: Benztropine 1 MG TAB PO SCH (22:19)
[2017-10-06] MEDS: Dextrose 5 %-0.45 % NaCl 1,000 ML IV SCH ×2 (06:29→16:36)
[2017-10-06] MEDS: Ascorbic Acid 500 mg Chewable Tablet PO SCH (08:09)
[2017-10-06] MEDS: Calcium Carbonate + Vit D 1 TAB PO SCH ×2 (08:10→23:04)
[2017-10-06] MEDS: Docusate 100 MG CAP PO SCH ×2 (08:10→23:04)
[2017-10-06] MEDS: cloNIDine 0.2 MG TAB PO SCH ×2 (08:10→23:04)
[2017-10-06] MEDS: Amlodipine 10 MG TAB PO SCH (08:10)
[2017-10-06] MEDS: busPIRone HCl 5 MG TAB PO SCH ×3 (08:10→23:03)
[2017-10-06] MEDS: Ferrous Sulfate 325 MG TAB PO SCH ×2 (08:10→16:36)
[2017-10-06] MEDS: Artificial Tear Sol 15 ML BOT EA EYE SCH ×3 (08:10→23:05)
[2017-10-06] MEDS: Fluconazole In NaCl,Iso-Osm 100 MG in Premix Bag 1 BAG IVPB SCH (08:11)
[2017-10-06] MEDS: Polyethylene Glycol 3350 17 GM Packet PO SCH (08:11)
[2017-10-06] MEDS: levETIRAcetam 500 mg/5 ml Oral Solution PO SCH ×2 (08:19→23:05)
[2017-10-06] MEDS: cefTRIAXone\\ROCEPHIN 2 GM in Sodium Chloride 0.9% 100 ML IVPB SCH (11:35)
[2017-10-06] MEDS: Mirtazapine 15 MG TAB PO SCH (23:03)
[2017-10-06] MEDS: Benztropine 1 MG TAB PO SCH (23:03)
[2017-10-06] MEDS: risperiDONE 1 MG TAB PO SCH (23:05)
[2017-10-07] MEDS: Dextrose 5 %-0.45 % NaCl 1,000 ML IV SCH ×2 (03:05→16:52)
[2017-10-07] MEDS: cloNIDine 0.2 MG TAB PO SCH ×2 (09:14→21:11)
[2017-10-07] MEDS: Calcium Carbonate + Vit D 1 TAB PO SCH ×2 (09:16→21:40)
[2017-10-07] MEDS: busPIRone HCl 5 MG TAB PO SCH ×3 (09:17→21:40)
[2017-10-07] MEDS: Ferrous Sulfate 325 MG TAB PO SCH ×2 (09:19→15:53)
[2017-10-07] MEDS: Fluconazole In NaCl,Iso-Osm 100 MG in Premix Bag 1 BAG IVPB SCH (09:19)
[2017-10-07] MEDS: Docusate 100 MG CAP PO SCH ×2 (09:19→21:40)
[2017-10-07] MEDS: Ascorbic Acid 500 mg Chewable Tablet PO SCH (09:19)
[2017-10-07] MEDS: Artificial Tear Sol 15 ML BOT EA EYE SCH ×3 (09:21→21:38)
[2017-10-07] MEDS: Amlodipine 10 MG TAB PO SCH (09:21)
[2017-10-07] MEDS: levETIRAcetam 500 mg/5 ml Oral Solution PO SCH ×2 (09:22→21:41)
[2017-10-07] MEDS: Polyethylene Glycol 3350 17 GM Packet PO SCH (09:23)
[2017-10-07] MEDS: cefTRIAXone\\ROCEPHIN 2 GM in Sodium Chloride 0.9% 100 ML IVPB SCH (15:18)
[2017-10-07] MEDS: Benztropine 1 MG TAB PO SCH (21:40)
[2017-10-07] MEDS: Mirtazapine 15 MG TAB PO SCH (21:40)
[2017-10-07] MEDS: risperiDONE 1 MG TAB PO SCH (21:41)
[2017-10-08] MEDS: Dextrose 5 %-0.45 % NaCl 1,000 ML IV SCH (03:37)
[2017-10-08] MEDS: cefTRIAXone\\ROCEPHIN 2 GM in Sodium Chloride 0.9% 100 ML IVPB SCH ×2 (08:10→08:21)
[2017-10-08] MEDS: Amlodipine 10 MG TAB PO SCH ×2 (08:11→08:21)
[2017-10-08] MEDS: Artificial Tear Sol 15 ML BOT EA EYE SCH (08:11)
[2017-10-08] MEDS: levETIRAcetam 500 mg/5 ml Oral Solution PO SCH (08:11)
[2017-10-08] MEDS: Ferrous Sulfate 325 MG TAB PO SCH (08:12)
[2017-10-08] MEDS: cloNIDine 0.2 MG TAB PO SCH (08:14)
[2017-10-08] MEDS: busPIRone HCl 5 MG TAB PO SCH (08:14)
[2017-10-08 08:15] VITALS: BP 153/71; TEMP 99
[2017-10-08] MEDS: Ascorbic Acid 500 mg Chewable Tablet PO SCH ×2 (08:15→08:21)
[2017-10-08] MEDS: Calcium Carbonate + Vit D 1 TAB PO SCH (08:15)
[2017-10-08] MEDS: Polyethylene Glycol 3350 17 GM Packet PO SCH ×2 (08:15→08:21)
[2017-10-08] MEDS: Docusate 100 MG CAP PO SCH (08:21)
[2017-10-08] MEDS: Fluconazole In NaCl,Iso-Osm 100 MG in Premix Bag 1 BAG IVPB SCH (09:29)
--- NOTE | 2017-10-11 08:44 | DIS ---
ADMITTING DIAGNOSES: 1. Urinary tract infection, rule out sepsis. 2. Acute kidney injury. 3. Metabolic encephalopathy and acute uncontrolled hypertension. 4. Dementia. 5. Seizure disorder. 6. Anxiety disorder. FINAL DIAGNOSES: 1. Urinary tract infection, no evidence of sepsis. 2. Acute metabolic encephalopathy, improved. 3. Acute kidney injury, improved. 4. Hypertension, uncontrolled, improved. 5. Seizure disorder. 6. Anxiety disorder. 7. Dementia. BRIEF SUMMARY OF HOSPITAL COURSE: Ms. Rangel is an 87-year-old -[place] female admitted rachel use of change in mental status, fever, not responding well, and not eating well. The patient was fou nd to have urinary tract infection and also acute kidney injury. The patient's BUN was elevated, but came down with fluid therapy. Her urine culture showed growth of E. coli and also vancomycin resist ant Enterococcus. E. coli was sensitive to ceftriaxone and Enterococcus was resistant to vancomycin, but sensitive to ampicillin and quinolones as well. The patient was initially started on antibiotic s with ampicillin and also Diflucan. The patient also received ceftriaxone. The patient's blood pre ssure was initially uncontrolled, but improved with medications. The patient also had hypokalemia wh ich was corrected. The patient's mental status improved after fluid therapy and antibiotics. She st arted to eat better. In view of improvement, the patient is discharged back to [facility]. At the time of discharge, she was stable. Her vital signs were stable. Lungs clear. Heart sounds regu lar. Abdomen soft. DISCHARGE MEDICATIONS: Include ferrous sulfate 325 b.i.d., vitamin C daily, MiraLax 17 grams daily, Remeron 15 mg at bedtime, Keppra 500 b.i.d., Ativan p.r.n. and Cogentin 0.5 at bedtime, aspirin 81 mg daily, Norvasc 10 mg daily, Risperdal 2 mg at bedtime, clonidine 0.2 b.i.d., BuSpar 5 mg t.i.d., Duo Nebs q.i.d., Diflucan 100 mg daily for 10 days, Macrobid 100 mg b.i.d. for 10 days, DuoNebs q.i.d. p. r.n. DISCHARGE INSTRUCTIONS: The patient will have a repeat urinalysis and culture in the [facility] in 2 weeks, probably will place on the prophylactic antibiotic.
== END 2017-10-08 13:52 | DRG 689 ==
LOC: ERS 11:23 → T4-A 15:12
PROVIDERS: ADMIT Internal Medicine; ATTEND Internal Medicine
DX: N39.0 Urinary tract infection, site not specified (principal); G93.41 Metabolic encephalopathy; F20.0 Paranoid schizophrenia; N17.9 Acute kidney failure, unspecified; F03.90 Unspecified dementia, unspecified severity, without behavioral disturbance, psychotic disturbance, mood disturbance, and anxiety; I10 Essential (primary) hypertension; G40.909 Epilepsy, unspecified, not intractable, without status epilepticus; F41.9 Anxiety disorder, unspecified; Z79.82 Long term (current) use of aspirin; Z79.899 Other long term (current) drug therapy
CPT/HCPCS: 36415; 51701; 71045; 80048; 80053; 81003; 81015; 83605; 85025; 87040; 87077; 87086; 87186; 90471; 90670; 94640; 96365; 96367; 96375; A4353; G0009; G8996-GN-CK; G8996-GN-CN; G8997-GN-CK; J0290; J0696; J1450; J1580; J3370; J3480; J7042; J7050; J7620